=== PATIENT | male | born 1955 | race Caucasian/White ===

== ENCOUNTER 2017-04-21 17:05 | Outpatient (CLI) | payer MEDICAID | END 2017-04-21 17:06 | disposition critical access hospital (66) | LOC: EMS 17:05 | PROVIDERS: ATTEND Surgery | DX: R06.02 Shortness of breath (principal); R07.9 Chest pain, unspecified | CPT/HCPCS: A0425; A0427 ==

== ENCOUNTER 2017-04-21 17:29 | Emergency (ER) | payer MEDICAID ==
--- NOTE | 2017-04-21 17:44 | ED Physician Documentation ---
History of Present Illness - Stated complaint Stated Complaint: SOA - Chief complaint Chief Complaint: Resp - History obtained from History obtained from: Patient, EMS - History of Present Illness Timing: Chronic Pain level max: 1 Pain level now: 0 Improved by: nebulizer treatments Worsened by: walking - Treatment prior to arrival Treatment prior to arrival: duoneb and solumedrol with EMS - Additonal information Additional information: Ran out of his albuterol today and his duonebs 2 weeks ago. Also out of his other medications. Increasing chest tightness and dyspnea since running out of his medications. Received nebs and IV solumedrol with EMS. Feels better and is on 3L NC at home. Review of Systems Ten Systems: 10 systems reviewed and negative Constitutional: denies: Fever, Chills Eyes: denies: Decreased vision Ears: denies: Ear pain Nose: denies: Rhinorrhea / runny nose, Congestion Throat: denies: Sore throat Cardiac: denies: Chest pain / pressure, Palpitations, Calf pain Respiratory: reports: Dyspnea, Wheezing. denies: Cough, Hemoptysis GI: denies: Abdominal Pain, Nausea, Vomiting, Diarrhea : denies: Dysuria Skin: denies: Rash Musculoskeletal: denies: Neck pain, Back pain Neurologic: denies: Headache PD PAST MEDICAL HISTORY - Past Medical History Past Medical History: Yes Cardiovascular: Hypertension, High cholesterol Respiratory: COPD Neuro: None Endocrine/Autoimmune: None : None HEENT: Other Psych: None Musculoskeletal: None Derm: None - Past Surgical History Past Surgical History: Yes - Present Medications Home Medications: Ambulatory Orders Medication Instructions Recorded Confirmed Albuterol Sulfate [Proair Hfa] 2 puffs Q4H PRN 06/09/14 04/21/17 Aspirin 325 mg DAILY 06/09/14 04/21/17 Lisinopril 20 mg BID 06/09/14 04/21/17 Albuterol Sulf [Ventolin Hfa 2 puffs INH Q4HR PRN #1 inhaler 04/21/17 Inhaler] Atorvastatin [Lipitor] 40 mg DAILY 04/21/17 04/21/17 Ipratropium/Albuterol Sulfate 3 ml QID 04/21/17 04/21/17 [Iprat-Albut 0.5-3(2.5) mg/3 ml] Ipratropium/Albuterol [Duoneb] 3 ml INH Q6H #30 neb 04/21/17 Metoprolol Tartrate 25 mg PO BID 04/21/17 04/21/17 Prednisone 40 mg PO DAILY #10 tablet 04/21/17 - Allergies Allergies/Adverse Reactions: Allergies Allergy/AdvReac Type Severity Reaction Status Date / Time No Known Drug Allergies Allergy Verified 04/21/17 17:39 - Social History Does the pt smoke?: Yes Smoking Status: Current every day smoker Does the pt drink ETOH?: No Does the pt have substance abuse?: No PD ED PE NORMAL - Vitals Vital signs reviewed: Yes - General General: Alert and oriented X 3, No acute distress, Well developed/nourished - HEENT HEENT: Moist mucous membranes - Neck Neck: Supple, no meningeal sign - Cardiac Cardiac: RRR, Strong equal pulses - Respiratory Respiratory: No respiratory distress, Other (dimished BS bilaterally with mild wheeze) - Abdomen Abdomen: Soft, Non tender - Derm Derm: Warm and dry, No rash - Extremities Extremities: No edema, No calf tenderness / cord - Neuro Neuro: Alert and oriented X 3 - Psych Psych: Normal mood, Normal affect Results - Vitals Vitals: Vital Signs - 24 hr 04/21/17 04/21/17 04/21/17 17:35 17:55 18:22 Temperature 36.9 C Heart Rate 70 64 Respiratory 22 18 Rate Blood Pressure 208/93 H 189/74 H O2 Saturation 100 97 04/21/17 04/21/17 18:24 19:44 Temperature Heart Rate 59 L 60 Respiratory 20 20 Rate Blood Pressure 168/19 H 170/80 H O2 Saturation 93 95 Oxygen O2 Source Nasal cannula PD MEDICAL DECISION MAKING - ED course Complexity details: re-evaluated patient, considered differential, d/w patient, d/w family ED course: Patient is a 61-year-old male who has a long-standing history of COPD. Ran out of his medications several weeks ago and ran out of his last inhaler today. Increased dyspnea today. This resolved with treatment with EMS. Was also given nebulizer treatments here as well as prednisone. He states that he cannot make it to his doctor's appointments because he does not have a ride. We discussed using [facility] to schedule bead picker some drop-offs for him. He also states he cannot get his medications because he cannot get to the pharmacy. His family who is present in the emergency department states that they cannot bead picker his medications for him either. Recommend that he talk to [facility] to determine if he is eligible for home delivery of his medications. We also discussed the fact that he may benefit from a assisted living facility or senior living as he is having a harder time taking care of himself at home. Resources were given. He will call his doctor in the morning and speak with the clinic staff and a social work associate if available to help with the transition for him. No acute emergency medical condition at this time. Patient counseled regarding signs and symptoms for which I believe and urgent re-evaluation would be necessary. Patient with good understanding of and agreement to plan and is comfortable going home at this time This document was made in part using voice recognition software. While efforts are made to proofread this document, sound alike and grammatical errors may occur. Departure - Departure Disposition: 01 Home, Self Care Clinical Impression: Severe chronic obstructive pulmonary disease Condition: Good Instructions: COPD Dc Follow-Up: Deisy Javed ARNP [Primary Care Provider] - Tomorrow Prescriptions: Albuterol Sulf [Ventolin Hfa Inhaler] 2 puffs INH Q4HR PRN #1 inhaler PRN Reason: Wheezing Ipratropium/Albuterol [Duoneb] 3 ml INH Q6H #30 neb Prednisone 40 mg PO DAILY #10 tablet Comments: You need to fill your prescriptions tomorrow. you need to call your doctor in the morning as well to refill your medications. Discharge Date/Time: 04/21/17 20:41
[2017-04-21] MEDS ORDERED: ALBUTEROL NEB 2.5 MG/3 ML INH ONE (18:17)
[2017-04-21] MEDS: ALBUTEROL NEB 2.5 MG/3 ML INH STA (18:22)
[2017-04-21] MEDS: predniSONE 20 MG TABLET PO STA (18:34)
[2017-04-21] MEDS ORDERED: predniSONE 20 MG TABLET ONE (18:36)
[2017-04-21] MEDS ORDERED: IPRATROPIUM/ALBUTEROL 3 ML NEB INH ONE (19:40)
[2017-04-21] MEDS: IPRATROPIUM/ALBUTEROL 3 ML NEB INH STA (19:43)
[2017-04-21 19:46] VITALS: BP 170/80
== END 2017-04-21 20:41 | disposition home or self-care (01) ==
LOC: EDUNIT# → ED 17:29
DX: J44.9 Chronic obstructive pulmonary disease, unspecified (principal); I10 Essential (primary) hypertension; Z79.82 Long term (current) use of aspirin
CPT/HCPCS: 94664; 99284

== ENCOUNTER 2017-09-29 14:20 | Outpatient (CLI) | payer MEDICAID ==
--- NOTE | 2017-09-29 16:00 | XRAY Report ---
TWO VIEW CHEST: 09/29/2017 CLINICAL INDICATION: Hypoxemia. COMPARISON: CT 02/25/2016, plain film 02/25/2016. FINDINGS: Frontal and lateral views of the chest demonstrate a normal cardiac silhouette. Extensive emphysema persists. New patchy infiltrates are superimposed. No effusion or pneumothorax is present. IMPRESSION: NEW PATCHY INFILTRATES SUPERIMPOSED UPON EXTENSIVE EMPHYSEMA. TD: 09/29/2017 15:59
== END 2017-09-29 14:21 | disposition home or self-care (01) ==
LOC: DI.S 14:20
PROVIDERS: ATTEND Nurse Practitioner Family
DX: R91.8 Other nonspecific abnormal finding of lung field (principal); J43.9 Emphysema, unspecified
CPT/HCPCS: 71046

== ENCOUNTER 2017-09-29 14:40 | Outpatient (CLI) | payer MEDICAID ==
[2017-09-29 18:03] LABS: BASOPHILS % (AUTO) 0.7 %; EOSINOPHILS # (AUTO) 0.1 10^3/uL (0.0-0.7); EOSINOPHILS % (AUTO) 1.5 %; HGB - HEMOGLOBIN 14.3 g/dL (14.0-18.0); LYMPHOCYTES # (AUTO) 0.7 10^3/uL (1.5-3.5); LYMPHOCYTES % (AUTO) 10.7 %; MEAN CORPUSCULAR HEMOGLOBIN 27.8 pg (27.0-31.0); MEAN CORPUSCULAR HGB CONC 31.7 g/dL (32.0-36.0); MEAN CORPUSCULAR VOLUME 87.5 fL (80.0-94.0); MEAN PLATELET VOLUME 9.1 fL (7.4-11.4); MONOCYTES # (AUTO) 0.4 10^3/uL (0.0-1.0); MONOCYTES % (AUTO) 6.7 %; NEUTROPHILS % (AUTO) 80.4 %; PLT - PLATELET COUNT 137 10^3/uL (130-450); RED BLOOD COUNT 5.15 10^6/uL (4.70-6.10); RED CELL DISTRIBUTION WIDTH 14.1 % (12.0-15.0); WHITE BLOOD COUNT 6.3 x10^3/uL (4.8-10.8)
[2017-09-29 18:30] LABS: ALKALINE PHOSPHATASE 69 IU/L (42-121); ALT ALANINE AMINOTRANSFERASE 25 IU/L (10-60); AST ASPARTATE AMINOTRANSFERASE 33 IU/L (10-42); CALCIUM 9.1 mg/dL (8.5-10.3); CARBON DIOXIDE - CO2 34 mmol/L (21-32); CHLORIDE 90 mmol/L (101-111); GLUCOSE 87 mg/dL (70-100); SODIUM 135 mmol/L (135-145)
[2017-09-29 18:33] LABS: THYROID STIMULATING HORMONE 9.79 uIU/mL (0.34-5.60)
[2017-09-29 18:40] LABS: ALBUMIN 3.7 g/dL (3.2-5.5); ALBUMIN/GLOBULIN RATIO 1.1 (1.0-2.2); BILIRUBIN,TOTAL 0.5 mg/dL (0.2-1.0); BUN - BLOOD UREA NITROGEN 12 mg/dL (6-20); CREATININE 0.5 mg/dL (0.6-1.2); GFR - MDRD 167 (>89); TOTAL PROTEIN 7.2 g/dL (6.7-8.2)
[2017-09-29 19:11] LABS: FREE T4 (FREE THYROXINE) 0.79 ng/dL (0.58-1.64)
== END 2017-09-29 14:41 | disposition home or self-care (01) ==
LOC: LAB.S 14:40
PROVIDERS: ATTEND Nurse Practitioner Family
DX: I11.0 Hypertensive heart disease with heart failure (principal); I50.9 Heart failure, unspecified; E04.1 Nontoxic single thyroid nodule; I25.10 Atherosclerotic heart disease of native coronary artery without angina pectoris; J44.9 Chronic obstructive pulmonary disease, unspecified
CPT/HCPCS: 36415; 80050; 83880; 84439

== ENCOUNTER 2017-09-29 19:39 | Inpatient (IN) | payer MEDICAID ==
[2017-09-29] MEDS ORDERED: SODIUM CHLORIDE 0.9% 1,000 ML IV ONE (20:02)
[2017-09-29] MEDS ORDERED: FUROSEMIDE 40 MG/4 ML VIAL IVP STA (20:02)
--- NOTE | 2017-09-29 20:07 | ED Physician Documentation ---
PD HPI DYSPNEA - Stated complaint Stated Complaint: LAB TEST FOR CHF - Chief complaint Chief Complaint: Resp - History obtained from History obtained from: Patient, Family - History of Present Illness Timing - onset: Today Timing - onset during: Rest Timing - duration: Days (1) Timing - details: Gradual onset Pain level max: 0 Pain level now: 0 Improved by: O2 Worsened by: Exertion Associated symptoms: No: Fever, Cough, Hemoptysis, Wheezing, Chest pain / discomfort, Palpitations, Diaphoresis Similar symptoms before: Diagnosis (CHF, COPD) Recently seen: Clinic (seen in clinic [facility] today for same, sent here for elevated BNP) Review of Systems Ten Systems: 10 systems reviewed and negative Constitutional: denies: Fever, Chills Ears: denies: Ear pain Nose: denies: Rhinorrhea / runny nose, Congestion Throat: denies: Sore throat Cardiac: denies: Chest pain / pressure Respiratory: reports: Dyspnea, Cough, Wheezing. denies: Hemoptysis GI: denies: Abdominal Pain, Nausea, Vomiting, Diarrhea : denies: Dysuria Skin: denies: Rash Musculoskeletal: denies: Neck pain, Back pain Neurologic: denies: Focal weakness, Numbness, Confused, Altered mental status, Headache PD PAST MEDICAL HISTORY - Past Medical History Cardiovascular: Hypertension, High cholesterol Respiratory: COPD Neuro: None Endocrine/Autoimmune: None : None HEENT: Other Psych: None Musculoskeletal: None Derm: None - Past Surgical History Past Surgical History: Yes Cardiovascular: Coronary stent - Present Medications Home Medications: Ambulatory Orders Medication Instructions Recorded Confirmed Albuterol Sulfate [Proair Hfa] 2 puffs Q4H PRN 06/09/14 04/21/17 Aspirin 325 mg DAILY 06/09/14 04/21/17 Lisinopril 20 mg BID 06/09/14 04/21/17 Albuterol Sulf [Ventolin Hfa 2 puffs INH Q4HR PRN #1 inhaler 04/21/17 Inhaler] Atorvastatin [Lipitor] 40 mg DAILY 04/21/17 04/21/17 Ipratropium/Albuterol Sulfate 3 ml QID 04/21/17 04/21/17 [Iprat-Albut 0.5-3(2.5) mg/3 ml] Ipratropium/Albuterol [Duoneb] 3 ml INH Q6H #30 neb 04/21/17 Metoprolol Tartrate 25 mg PO BID 04/21/17 04/21/17 predniSONE [Prednisone] 40 mg PO DAILY #10 tablet 04/21/17 - Allergies Allergies/Adverse Reactions: Allergies Allergy/AdvReac Type Severity Reaction Status Date / Time No Known Drug Allergies Allergy Verified 09/29/17 20:31 - Social History Does the pt smoke?: Yes Smoking Status: Current every day smoker Does the pt drink ETOH?: No Does the pt have substance abuse?: No PD ED PE NORMAL - Vitals Vital signs reviewed: Yes - General General: Alert and oriented X 3, Other (pursed lip breathing) - HEENT HEENT: PERRL - Neck Neck: Supple, no meningeal sign - Cardiac Cardiac: Other (tachycardic) - Respiratory Respiratory: Other (rhonchi and decreased BS bilaterally.) - Abdomen Abdomen: Soft, Non tender, Non distended - Derm Derm: Warm and dry - Extremities Extremities: Other (2+ B LE edema) - Neuro Neuro: Alert and oriented X 3 - Psych Psych: Normal mood, Normal affect Results - Vitals Vitals: Vital Signs - 24 hr 09/29/17 09/29/17 09/29/17 19:49 20:05 20:08 Temperature 36.7 C Heart Rate 103 H 105 H 101 H Respiratory 20 14 19 Rate Blood Pressure 157/83 H 119/73 161/84 H O2 Saturation 78 L 94 100 09/29/17 09/29/17 09/29/17 20:10 20:30 21:32 Temperature 36.0 C L Heart Rate 96 101 H 101 H Respiratory 17 16 23 Rate Blood Pressure 130/77 118/81 H 102/66 O2 Saturation 100 94 99 09/29/17 09/29/17 21:47 21:58 Temperature Heart Rate 99 103 H Respiratory 23 23 Rate Blood Pressure 102/66 O2 Saturation 94 Oxygen O2 Source BIPAP Oxygen Flow Rate 15 - EKG (time done) 2005 Rate: Rate (enter#) (96) Rhythm: NSR [place]: Normal Intervals: Normal [place] QRS: Normal Ischemia: Normal ST segments - Labs Labs: Laboratory Tests 09/29/17 09/29/17 09/29/17 20:05 20:05 20:05 WBC 8.5 RBC 5.56 Hgb 15.2 Hct 48.5 MCV 87.3 MCH 27.3 MCHC 31.2 L RDW 14.5 Plt Count 170 MPV 7.9 Neut # Not Reportable Lymph # Not Reportable [place] # Not Reportable Eos # Not Reportable Baso # Not Reportable Absolute Nucleated RBC Not Reportable Total Counted 100 Band Neuts % (Manual) 4 Reactive Lymphs % (Man) 4 Abnorm Lymph % (Manual) 0 Nucleated RBC % Not Reportable Neutrophils # (Manual) 6.7 H Lymphocytes # (Manual) 1.5 Monocytes # (Manual) 0.3 Eosinophils # (Manual) 0.0 Basophils # (Manual) 0.0 Differential Comment MANUAL DIFFERENTIAL Platelet Estimate NORMAL (130-450,000) Platelet Morphology NORMAL APPEARANCE RBC Morph Micro Appear NORMAL APPEARANCE Sodium 136 Potassium 4.4 Chloride 87 L Carbon Dioxide 35 H Anion Gap 14.0 H BUN 13 Creatinine 0.6 Estimated GFR (MDRD) 136 Glucose 156 H Calcium 9.3 Total Bilirubin 0.8 AST 40 ALT 28 Alkaline Phosphatase 72 Troponin I < 0.04 B-Natriuretic Peptide Total Protein 7.9 Albumin 4.0 Globulin 3.9 Albumin/Globulin Ratio 1.0 Lipase 30 09/29/17 20:05 WBC RBC Hgb Hct MCV MCH MCHC RDW Plt Count MPV Neut # Lymph # [place] # Eos # Baso # Absolute Nucleated RBC Total Counted Band Neuts % (Manual) Reactive Lymphs % (Man) Abnorm Lymph % (Manual) Nucleated RBC % Neutrophils # (Manual) Lymphocytes # (Manual) Monocytes # (Manual) Eosinophils # (Manual) Basophils # (Manual) Differential Comment Platelet Estimate Platelet Morphology RBC Morph Micro Appear Sodium Potassium Chloride Carbon Dioxide Anion Gap BUN Creatinine Estimated GFR (MDRD) Glucose Calcium Total Bilirubin AST ALT Alkaline Phosphatase Troponin I B-Natriuretic Peptide 1173 H Total Protein Albumin Globulin Albumin/Globulin Ratio Lipase - Rads (name of study) cxr Radiology: Prelim report reviewed, EMP read contemporaneously, See rad report ( Severe emphysema and scarring, worse compared to 02/25/2016. Right mid and lower lung focal opacities are concerning for pneumonia superimposed on severe emphysema, appear slightly increased compared to prior. Multiple nodular opacities in the right upper lobe have increased, could be areas of pneumonia or aspiration. Follow-up of these findings are recommended to ensure resolution. A follow-up chest CT could be obtained to exclude malignancy. No pleural effusion or pneumothorax. Hyperexpanded lungs. ) PD MEDICAL DECISION MAKING - ED course Complexity details: reviewed old records, reviewed results, re-evaluated patient , considered differential, d/w patient, d/w road consultant ED course: Patient is a 62-year-old male who presents to the emergency department with hypoxia and respiratory distress. Initial O2 sat was in the 60s. Change from his home nasal cannula to a nonrebreather. O2 sats improved, placed on BiPAP for CHF. Also treated with Rocephin and azithromycin for possible pneumonia. Also given Lasix for his CHF. Will admit the patient for further evaluation and care. Negative troponin. No acute EKG changes. Discussed the case with Dr. Chawla who accepts. This document was made in part using voice recognition software. While efforts are made to proofread this document, sound alike and grammatical errors may occur. Departure - Departure Disposition: 64 [facility] DC/Xfer Clinical Impression: Moderate COPD (chronic obstructive pulmonary disease), Hypoxia Congestive heart failure Qualifiers: Congestive heart failure type: unspecified Congestive heart failure chronicity : acute on chronic Qualified Code(s): I50.9 - Heart failure, unspecified Pulmonary edema Qualifiers: Chronicity: acute Qualified Code(s): J81.0 - Acute pulmonary edema Condition: Stable Discharge Date/Time: 09/29/17 22:40
[2017-09-29 20:12] LABS: RED CELL DISTRIBUTION WIDTH 14.5 % (12.0-15.0); WHITE BLOOD COUNT 8.5 x10^3/uL (4.8-10.8)
[2017-09-29 20:19] LABS: BASOPHILS % (AUTO) 0.7 %; EOSINOPHILS % (AUTO) 0.8 %; HGB - HEMOGLOBIN 15.2 g/dL (14.0-18.0); LYMPHOCYTES % (AUTO) 10.9 %; MEAN CORPUSCULAR HEMOGLOBIN 27.3 pg (27.0-31.0); MEAN CORPUSCULAR HGB CONC 31.2 g/dL (32.0-36.0); MEAN CORPUSCULAR VOLUME 87.3 fL (80.0-94.0); MEAN PLATELET VOLUME 7.9 fL (7.4-11.4); MONOCYTES % (AUTO) 7.1 %; NEUTROPHILS % (AUTO) 80.5 %; PLT - PLATELET COUNT 170 10^3/uL (130-450); RED BLOOD COUNT 5.56 10^6/uL (4.70-6.10)
[2017-09-29 20:33] LABS: BILIRUBIN,TOTAL 0.8 mg/dL (0.2-1.0); CALCIUM 9.3 mg/dL (8.5-10.3)
[2017-09-29 20:34] LABS: ABNORMAL LYMPHS % (MANUAL) 0 %
[2017-09-29] MEDS ORDERED: LORazepam 2 MG/ML VIAL IVP STA (20:36)
[2017-09-29 20:41] LABS: CREATININE 0.6 mg/dL (0.6-1.2); TOTAL PROTEIN 7.9 g/dL (6.7-8.2)
[2017-09-29 20:46] LABS: BAND NEUTROPHILS % (MANUAL) 4 %; LYMPHOCYTES # (MANUAL) 1.5 10^3/uL (1.5-3.5); LYMPHOCYTES % (MANUAL) 14 %; MONOCYTES # (MANUAL) 0.3 10^3/uL (0.0-1.0); NEUTROPHILS # (MANUAL) 6.7 10^3/uL (1.5-6.6); NEUTROPHILS % (MANUAL) 75 %; PLATELET MORPHOLOGY NORMAL APPEARANCE (NORMAL); RBC MORPHOLOGY (MULTIPLE) NORMAL APPEARANCE (NORMAL)
[2017-09-29 20:47] LABS: DIFFERENTIAL COMMENT MANUAL DIFFERENTIAL; PLATELET ESTIMATE, MANUAL NORMAL (130-450,000) (NORMAL)
--- NOTE | 2017-09-29 20:53 | XRAY Report ---
EXAM: CHEST RADIOGRAPHY EXAM DATE: 09/29/2017 08:30 PM. CLINICAL HISTORY: Hypoxia. Patchy infiltrates. COMPARISON: Chest 09/29/2017 and 02/25/2016. TECHNIQUE: 1 view. FINDINGS: Lungs/Pleura: Severe emphysema and scarring, worse compared to 02/25/2016. Right mid and lower lung f ocal opacities are concerning for pneumonia superimposed on severe emphysema, appear slightly increas ed compared to prior. Multiple nodular opacities in the right upper lobe have increased, could be are as of pneumonia or aspiration. Follow-up of these findings are recommended to ensure resolution. A fo llow-up chest CT could be obtained to exclude malignancy. No pleural effusion or pneumothorax. Hypere xpanded lungs. Mediastinum: Enlarged pulmonary arteries is seen with pulmonary arterial hypertension. The heart is n ot enlarged. IMPRESSION: Severe emphysema and scarring, worse compared to 02/25/2016. Right mid and lower lung foc al opacities are concerning for pneumonia superimposed on severe emphysema, appear slightly increased compared to prior. Multiple nodular opacities in the right upper lobe have increased, could be areas of pneumonia or aspiration. Follow-up of these findings are recommended to ensure resolution. A foll ow-up chest CT could be obtained to exclude malignancy. No pleural effusion or pneumothorax. Hyperexp anded lungs. [facility] Referring Provider Line: [phone] SITE ID: [id number]
[2017-09-29] MEDS ORDERED: cefTRIAXone 1 GM VIAL IVP STA (21:05)
[2017-09-29] MEDS ORDERED: AZITHROMYCIN INJ 500 MG in SODIUM CHLORIDE 0.9% 250 ML IV STA (21:05)
[2017-09-29] MEDS ORDERED: methylPREDNISolone SUCCINATE 125 MG/2 ML VIAL IVP STA (21:06)
[2017-09-29] MEDS ORDERED: IPRATROPIUM/ALBUTEROL 3 ML NEB INH STA (21:06)
[2017-09-29] MEDS ORDERED: ONDANSETRON 4 MG/2 ML VIAL IVP PRN (22:12)
[2017-09-29 22:46] LABS: SALICYLATE < 6.0 mg/dL
[2017-09-29 22:47] LABS: ACETAMINOPHEN < 10 ug/mL (10-30)
[2017-09-29] MEDS ORDERED: IOPAMIDOL-300 100 ML VIAL ONE (23:10)
[2017-09-29] MEDS ORDERED: IOPAMIDOL-300 100 ML VIAL IVP ONE (23:37)
[2017-09-29 23:52] LABS: MUDS CUTOFF CONCENTRATIONS CUTOFF CONC BELOW:
[2017-09-29 23:54] LABS: BILIRUBIN,URINE NEGATIVE (NEGATIVE); GLUCOSE, URINE (UA) NEGATIVE (NEGATIVE); KETONES,URINE (UA) NEGATIVE (NEGATIVE); LEUKOCYTE ESTERASE, URINE NEGATIVE (NEGATIVE); NITRITE,URINE NEGATIVE (NEGATIVE); OCCULT BLOOD,URINE TRACE-LYSE (NEGATIVE); PH,URINE 5.5 PH (5.0-7.5); PROTEIN,URINE NEGATIVE (NEGATIVE); UROBILINOGEN,URINE 0.2 (NORMAL) E.U./dL (NORMAL)
[2017-09-29 23:56] LABS: CLARITY,URINE CLEAR (CLEAR)
[2017-09-30] MEDS: FLUTICASONE HFA 220 MCG INHALER INH SCH ×2 (00:02→13:02)
[2017-09-30] MEDS: IPRATROPIUM/ALBUTEROL 3 ML NEB INH SCH ×6 (00:03→19:37)
[2017-09-30 00:05] LABS: BACTERIA,URINE Rare /HPF (None Seen); MUCUS,URINE Few Strands; SQUAMOUS EPITHELIAL CELL,UR RARE Squamous (<= Few)
[2017-09-30 00:06] LABS: AMPHETAMINE SCREEN,URINE NEGATIVE (NEGATIVE); BENZODIAZEPINES SCREEN, URINE NEGATIVE (NEGATIVE); CASTS, URINE 6-10 Hyaline Casts /LPF; COCAINE SCREEN URINE NEGATIVE (NEGATIVE); METHADONE SCREEN, URINE NEGATIVE (NEGATIVE); METHAMPHETAMINES SCREEN, URINE NEGATIVE (NEGATIVE); OPIATE SCREEN, URINE NEGATIVE (NEGATIVE); OXYCODONE SCREEN, URINE NEGATIVE (NEGATIVE); PROPOXYPHENE SCREEN, URINE NEGATIVE (NEGATIVE); TRICYCLIC ANTIDEPRESSANT,URINE NEGATIVE (NEGATIVE)
--- NOTE | 2017-09-30 00:20 | CT Report ---
EXAM: CT ANGIOGRAM CHEST EXAM DATE: 09/29/2017 11:39 PM. CLINICAL HISTORY: Respiratory failure. COMPARISON: 02/25/2016. TECHNIQUE: Routine helical imaging was performed through the chest in the pulmonary arterial phase. I V Contrast: Nonionic. Reconstructions: Coronal 3-D MIP reconstructions.Sagittal and coronal. In accordance with CT protocol optimization, one or more of the following dose reduction techniques w ere utilized for this exam: automated exposure control, adjustment of mA and/or KV based on patient s ize, or use of iterative reconstructive technique. FINDINGS: Pulmonary Arteries: Diagnostic quality: Adequate through the segmental arteries. No evidence for acute or chronic pulmona ry emboli. Right ventricle appears mildly dilated compared with the left ventricle. Mild bowing of the intervent ricular septum toward the left. Dilated central pulmonary arteries. Lungs/Pleura: Advanced emphysema. Motion artifact. Possible interstitial infiltrate or edema. Scatter ed bilateral areas of ill-defined nodularity. Small pleural effusions. No pneumothorax. Mediastinum: Heart size is normal. Coronary artery calcifications. Normal-sized mediastinal lymph nod es. Thoracic Aorta: Moderate to severe atherosclerosis. No aortic aneurysm or dissection. Upper Abdomen: Small stones in the gallbladder. No cholecystitis identified. Other: Right carotid artery stent. IMPRESSION: 1. No pulmonary emboli seen. 2. Advanced emphysema with prominent central pulmonary arteries suggesting pulmonary arterial hyperte nsion. There may be mild right heart strain. 3. Coronary artery calcifications. 4. Possible interstitial infiltrate or edema. Scattered ill-defined areas of slight nodularity seen b ilaterally, possibly inflammatory or fibrotic. Malignancy difficult to exclude. Recommend 6 month fol low-up CT. 5. Small pleural effusions. 6. Small stones in the gallbladder. No cholecystitis identified. [facility] Referring Provider Line: [phone] SITE ID: [id number]
[2017-09-30] MEDS: PIPERACILLIN/TAZOBACTAM 3.375 GM in SODIUM CHLORIDE 0.9% MINIBAG 100 ML IV SCH ×5 (00:30→22:06)
[2017-09-30] MEDS: ASPIRIN 325 MG TABLET PO SCH ×2 (00:38→08:46)
--- NOTE | 2017-09-30 03:27 | HISTORY & PHYSICAL EXAMINATION ---
DATE OF SERVICE: 09/29/2017 Physician: Rocio Chawla MD DATE OF ADMISSION: 09/29/2017 CHIEF COMPLAINT: Respiratory failure. 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 Not not much history could be obtained from the patient, as he presented with respiratory failure and was on BiPAP when I interviewed him. As much as he could answer my questions while on BiPAP, he reported developing shortness of breath and cough about 2 weeks prior to presentation. He felt ill in general. Denied fever. Reported weight loss recently, but could not quantify. Per ER report, the patient was sent to the ER by Deisy Javed, primary care provider, due to an elevated BNP. On further interview, the patient reported that his lower extremities had been more swollen than before. He did not admit to noncompliance. Although he has history of such in the past , he reported using his home oxygen and taking his outpatient medications regularly. Reportedly, he quit smoking last year. Upon presentation to the ER, the patient was found with respiratory failure. His oxygen saturation was 60% on his usual oxygen flow, which would be 2-3 liters via nasal cannula. Due to his respiratory failure, he was started on noninvasive ventilation with BiPAP. When I saw him, he was on 30% FiO2, had good tidal volumes, and appeared uncomfortable and synchronous with the BiPAP. He had good mental status. ER workup showed normal white blood cell count. Chest x-ray with diffuse complex infiltrates described as severe emphysema, worse compared to February 2016. Right mid and lower lung focal opacities concerning for pneumonia superimposed on emphysema, increased compared to prior exam. In addition, there were multiple nodular opacities on the right side, which also increased, raising the possibility of aspiration. Followup with CT was recommended. There was no pneumothorax and no pleural effusion. EKG showed nonspecific changes. Troponin was negative. BNP was elevated around 1000. However, notably a BNP in February 2017 was in the 1000 range as well, although back in 2015 BNP was in the 300 range. CODE STATUS: During prior hospital admission in February 2016, patient was actually intubated and, at that time, he was FULL CODE status. When I interviewed him today, I attempted to discuss code status. The patient, however, told me that he did not understand the issue being discussed. Therefore, he will remain FULL CODE per default. REVIEW OF SYMPTOMS: Please see pertinent positives and negatives listed above at history of present illness. I completed 12-point review The patient did not report additional complaint. PAST MEDICAL HISTORY 1. End-stage COPD on 2-3 liters oxygen, history of intubation for respiratory failure in February 2016. 2. Coronary artery disease, with myocardial infarction in 2013, subsequently non-ST elevation myocardial infarction in February 2016. 3. Brief episode of V-tach in the setting of sepsis and critical illness during last hospital stay in February 2016. 4. Congestive heart failure. No echocardiogram available. 5. Hypertension. 6. Dyslipidemia. 7. History of noncompliance. 8. Peripheral vascular disease, status post carotid endarterectomy. 9. Last admission to [facility] was in February 2016, at which time the patient was admitted with respiratory failure, was intubated and was critically ill. He was found with non-ST elevation myocardial infarction, had an episode of V-tach, and was found with bacteremia/sepsis. After a short stay at [facility] due to his critical illness, complex background, and multiple abnormalities he was transferred to [place]. OUTPATIENT MEDICATIONS The patient could not confirm current medication list. Reviewing the available record, he was on: 1. Metoprolol. 2. Aspirin. 3. Prednisone. 4. Lisinopril. 5. DuoNeb. 6. Lipitor. 7. ProAir. ALLERGIES: NO KNOWN DRUG ALLERGIES. SOCIAL HISTORY: Reviewing prior medical records, the patient had been independent, lives by himself. His brother was mentioned in the past medical record, who lives nearby on [facility] [address] [facility]. The patient is a lifelong smoker and he reports quitting last year. He does not have history of alcohol use. Does have history of opiate misuse. He has never been and does not have children. PRIMARY CARE PROVIDER: Deisy Javed FAMILY HISTORY: There is no family history of premature coronary artery disease. PHYSICAL EXAMINATION VITAL SIGNS: Temperature 36 Celsius, heart rate between 90 and 100, blood pressure 100/60, respiratory rate 23, oxygen saturation 97 percent on BiPAP on 30 percent FiO2. GENERAL: The patient is a well-developed, cachectic, unkempt, disheveled appearing male who looks older than his age. MUSCULOSKELETAL: Temporal wasting and sunken eyes. Decreased muscle mass, skin and bones, appears with COPD like cachexia with increased AP diameter of the chest. RESPIRATORY: Decreased air entry above all lung maguire, without crackles or wheezes, with increased work of breathing. CARDIOVASCULAR: S1, S2. Regular tachycardia. I could not hear a murmur, rub or gallop. ABDOMEN: Cachectic. Bowel tones hypoactive. Nontender. Benign. NEUROLOGIC: Alert, oriented. Answered straightforward questions appropriately. Neurologically nonfocal. PSYCHIATRIC: Cooperative. No agitation. LYMPHATIC: Peripheral edema up to the mid shins, bilaterally symmetric. SKIN: Pallor. No jaundice. ASSESSMENT/ACTIVE ISSUES/DIAGNOSES/PLAN 1. Respiratory failure, likely multifactorial. a. With diffuse lung infiltrates, pneumonia, aspiration is on the top of the differential diagnoses. Notably reviewing prior medical record, the patient has a history of opioid misuse. It is reasonable to assume if he would take opiates, he would have higher aspiration risk. For this problem, he will be started on Zosyn. Will have speech therapy/ swallow evaluation. Will be monitored with aspiration precautions. b. With elevated BNP and lower extremity swelling, congestive heart failure exacerbation is also likely and contributing. Initially, the patient ruled out for acute coronary syndrome, had a nonspecific EKG and negative troponin. We will continue to cycle troponins to make sure that it is not on an upgoing trend. The patient received Lasix already and was diuresed when he presented. We will give Lasix as needed monitoring the volume status. I ordered echocardiogram and will follow the clinical course. Regarding home medications , I will continue metoprolol and aspirin for history of coronary artery disease and to avoid cardiac decompensation with rebound tachycardia. Regarding additional medications for CHF such as nitrate, currently, the blood pressure is borderline around 100 and, other than metoprolol, I do not think the patient would tolerate further antihypertensive. c. Acute on chronic respiratory failure/chronic obstructive pulmonary disease. The patient likely has exacerbation with decreased air entry, but not much wheezes. He is chronically oxygen dependent, however, today he requires way more oxygen than his baseline. Besides pneumonia and CHF, he will also receive treatment for COPD, which will include IV steroid , proton pump inhibitor, bronchodilators and inhaled corticosteroids as well. Overall, for respiratory failure, we will continue noninvasive ventilation on BiPAP and be monitored in the ICU. d. Finally, to further identify causes leading to worsening respiratory failure , we will complete CT angiography of the chest per PE protocol to make sure that this patient does not have pulmonary embolism plus to further characterize the lung nodules and lesions which were described as complex on the chest x-ray. Notably, this patient being a smoker, being cachectic, looking much older than his age, malignancy is in the differential diagnosis. 2. Cachexia/end stage chronic obstructive pulmonary disease. Patient reporting weight loss. We will start him on high protein, high calorie diet. Request lubricating machine tender evaluation and hope that with treatment of his medical problems he might improve. If not, then palliative care evaluation could be pursued in the future, possibly as outpatient or inpatient, depending on the clinical course. 3. FULL CODE status per default. Patient unable to discuss. 4. History of coronary artery disease and non-ST elevation myocardial infarction. Today, the patient so far ruled out for acute coronary syndrome. We will continue to cycle troponins, continue metoprolol and aspirin, and echocardiogram was ordered as well. 5. History of opioid misuse. I did not see opiates or psychoactive medications on the current medication list, although the patient cannot confirm or update his medication list. I ordered urine and serum toxicology. 6. Deep venous thrombosis prophylaxis. Critical care time spent with the admission of this patient was 60 minutes. ATTESTATION: In good yung, I certify that this patient will need to be admitted as inpatient and stay in the hospital for more than 24-48 hours; however, it is reasonable to expect that he will be discharged or transferred to another facility within 96 hours. Time spent was 60 minutes. cc: Deisy Javed TD: 09/30/2017 03:26 SIMONE
[2017-09-30] MEDS: methylPREDNISolone SUCCINATE 40 MG/ML VIAL IVP SCH ×3 (06:17→22:06)
[2017-09-30] MEDS: SODIUM CHLORIDE FLUSH 0.9% 10 ML SYRINGE IVP SCH ×3 (06:18→22:07)
[2017-09-30] MEDS: PANTOPRAZOLE 40 MG TABLET PO SCH (06:18)
[2017-09-30] MEDS: METOPROLOL TARTRATE 25 MG TABLET PO SCH ×3 (08:46→21:20)
[2017-09-30] MEDS: POLYETHYLENE GLYCOL 3350 17 GM PACKET PO SCH (08:47)
[2017-09-30] MEDS: HEPARIN 5,000 UNIT/ML VIAL SUBQ SCH ×2 (09:17→21:20)
[2017-09-30] MEDS: BUDESONIDE 0.5 MG/2 ML NEB INH SCH ×2 (11:20→19:34)
[2017-09-30] MEDS: SODIUM CHLORIDE FLUSH 0.9% 10 ML SYRINGE IVP PRN (14:16)
[2017-09-30] MEDS ORDERED: MORPHINE SOL 10 MG/0.5 ML SYRINGE PO PRN ×2 (17:06→20:24)
--- NOTE | 2017-09-30 22:02 | PROVIDER PROGRESS NOTE ---
Subjective - Prog Note Date Prog Note Date: 09/30/17 Prog Note Time: 16:30 - Subjective Pt reports feeling: Improved (Less short of breath, rested (pt slept)) Current Medications - Current Medications Current Medications: Albuterol,Aspirin, budesonide, heparin, unit, metoprolol,Morphine, Zofran, Protonix, Zosyn,Sodium chloride Objective - Vital Signs/Intake & Output Reviewed Vital Signs: Yes Vital Signs: Vital Signs Temp Pulse Pulse Resp BP BP Pulse Ox 09/30/17 21:20 122/65 09/30/17 21:00 106 H 21 122/65 94 09/30/17 20:00 37.0 C 106 H 21 135/69 H 4 L 09/30/17 19:30 104 H 18 09/30/17 19:00 105 H 20 110/53 L 92 09/30/17 18:00 102 H 26 H 122/64 90 L Intake & Output: Intake & Output 09/27/17 09/28/17 09/29/17 09/30/17 23:59 23:59 23:59 23:59 Intake Total 250 2130.833 Output Total 1160 Balance 250 970.833 - Objective General Appearance: positive: Alert, Mild distress Eyes Bilateral: positive: Normal inspection, PERRL, EOMI, No lid inflammation, Conjunctivae nml, No scleral icterus ENT: positive: ENT inspection nml, Pharynx nml, No signs of dehydration, Purulent nasal drainage, Oral lesions Neck: positive: Nml inspection, Thyroid nml, No JVD, Trachea midline. negative : Thyromegaly Respiratory: positive: Chest non-tender, Other (Lung sounds diminished all maguire. Pt tachypneic 24BPM). negative: Wheezes, Rales, Rhonchi Cardiovascular: positive: Regular rate & rhythm, No murmur, No gallop. negative : JVD present Abdomen: positive: Non-tender, No organomegaly, Nml bowel sounds, No distention. negative: Hepatomegaly, Splenomegaly Back: positive: Nml inspection. negative: CVA tenderness (R), CVA tenderness (L ) Skin: positive: No rash, Warm, Dry, Pallor. negative: Diaphoresis Extremities: positive: Non-tender, Full ROM, Pedal edema Neurologic/Psychiatric: positive: Oriented x3, CN's nml (2-12), Motor nml, Sensation nml, Mood/affect nml - Lab Results Fish Bones: 10/01/17 07:30 10/01/17 07:30 Other Labs: Lab Results x24hrs 09/30/17 09/29/17 09/29/17 Range/Units 06:10 23:00 22:29 Troponin I < 0.04 (<0.49) ng/mL Urine Color YELLOW Urine Clarity CLEAR (CLEAR) Urine pH 5.5 (5.0-7.5) PH Ur Specific [place] 1.010 (1.002-1.030) Urine Protein NEGATIVE (NEGATIVE) mg/dL Urine Glucose (UA) NEGATIVE (NEGATIVE) mg/dL Urine Ketones NEGATIVE (NEGATIVE) mg/dL Urine Occult Blood TRACE-LYSE (NEGATIVE) Urine Nitrite NEGATIVE (NEGATIVE) Urine Bilirubin NEGATIVE (NEGATIVE) Urine Urobilinogen 0.2 (NORMAL) (NORMAL) E.U./dL Ur Leukocyte Esterase NEGATIVE (NEGATIVE) Urine RBC 6-10 H (0-5) /HPF Urine WBC 0-3 (0-3) /HPF Ur Squamous Epith Cells RARE Squamous (<= Few) Urine Bacteria Rare (None Seen) /HPF Urine Casts 6-10 Hyaline Casts /LPF Urine Mucus Few Strands Urine Culture Comments NOT INDICATED Salicylates < 6.0 mg/dL Urine Opiates Screen NEGATIVE (NEGATIVE) Ur Oxycodone Screen NEGATIVE (NEGATIVE) Urine Methadone Screen NEGATIVE (NEGATIVE) Ur Propoxyphene Screen NEGATIVE (NEGATIVE) Acetaminophen < 10 L (10-30) ug/mL Ur Barbiturates Screen NEGATIVE (NEGATIVE) Ur Tricyclics Screen NEGATIVE (NEGATIVE) Ur Phencyclidine Scrn NEGATIVE (NEGATIVE) Ur Amphetamine Screen NEGATIVE (NEGATIVE) U Methamphetamines Scrn NEGATIVE (NEGATIVE) U Benzodiazepines Scrn NEGATIVE (NEGATIVE) Urine Cocaine Screen NEGATIVE (NEGATIVE) U Cannabinoids Screen NEGATIVE (NEGATIVE) - Diagnostic Imaging Diagnostic Imaging Results: positive: Final report reviewed Diagnostic Imaging Comments: EXAM: CT ANGIOGRAM CHEST EXAM DATE: 09/29/2017 11:39 PM. CLINICAL HISTORY: Respiratory failure. COMPARISON: 02/25/2016. TECHNIQUE: Routine helical imaging was performed through the chest in the pulmonary arterial phase. IV Contrast: Nonionic. Reconstructions: Coronal 3-D MIP reconstructions.Sagittal and coronal. In accordance with CT protocol optimization, one or more of the following dose reduction techniques were utilized for this exam: automated exposure control, adjustment of mA and/or KV based on patient size, or use of iterative reconstructive technique. FINDINGS: Pulmonary Arteries: Diagnostic quality: Adequate through the segmental arteries. No evidence for acute or chronic pulmonary emboli. Right ventricle appears mildly dilated compared with the left ventricle. Mild bowing of the interventricular septum toward the left. Dilated central pulmonary arteries. Lungs/Pleura: Advanced emphysema. Motion artifact. Possible interstitial infiltrate or edema. Scattered bilateral areas of ill-defined nodularity. Small pleural effusions. No pneumothorax. Mediastinum: Heart size is normal. Coronary artery calcifications. Normal-sized mediastinal lymph nodes. Thoracic Aorta: Moderate to severe atherosclerosis. No aortic aneurysm or dissection. Upper Abdomen: Small stones in the gallbladder. No cholecystitis identified. Other: Right carotid artery stent. IMPRESSION: 1. No pulmonary emboli seen. 2. Advanced emphysema with prominent central pulmonary arteries suggesting pulmonary arterial hypertension. There may be mild right heart strain. 3. Coronary artery calcifications. 4. Possible interstitial infiltrate or edema. Scattered ill-defined areas of slight nodularity seen bilaterally, possibly inflammatory or fibrotic. Malignancy difficult to exclude. Recommend 6 month follow-up CT. 5. Small pleural effusions. 6. Small stones in the gallbladder. No cholecystitis identified. EXAM: CHEST RADIOGRAPHY EXAM DATE: 09/29/2017 08:30 PM. CLINICAL HISTORY: Hypoxia. Patchy infiltrates. COMPARISON: Chest 09/29/2017 and 02/25/2016. TECHNIQUE: 1 view. FINDINGS: Lungs/Pleura: Severe emphysema and scarring, worse compared to 02/25/2016. Right mid and lower lung focal opacities are concerning for pneumonia superimposed on severe emphysema, appear slightly increased compared to prior. Multiple nodular opacities in the right upper lobe have increased, could be areas of pneumonia or aspiration. Follow-up of these findings are recommended to ensure resolution. A follow-up chest CT could be obtained to exclude malignancy. No pleural effusion or pneumothorax. Hyperexpanded lungs. Mediastinum: Enlarged pulmonary arteries is seen with pulmonary arterial hypertension. The heart is not enlarged. IMPRESSION: Severe emphysema and scarring, worse compared to 02/25/2016. Right mid and lower lung focal opacities are concerning for pneumonia superimposed on severe emphysema, appear slightly increased compared to prior. Multiple nodular opacities in the right upper lobe have increased, could be areas of pneumonia or aspiration. Follow-up of these findings are recommended to ensure resolution. A follow-up chest CT could be obtained to exclude malignancy. No pleural effusion or pneumothorax. Hyperexpanded lungs. Assessment/Plan - Problem List (1) Severe chronic obstructive pulmonary disease Impression: Pt off BiPAP, says he does not want to go back on; he doesnt feel that it helped him. Pt with O2 sats in mid 90s on 4l/m but desats to mid 80s with any type of activity such as eating. Continue with nebulized steroids and bronchodilators and supplemental oxygen. No leukocytosis or fevers, doubt pneumonia. (2) Congestive heart failure Impression: BNP was 1173 today. Troponins were negative 3. We will continue with fluid restrictions and will monitor the patient closely on telemetry. Qualifiers: Congestive heart failure type: unspecified Congestive heart failure chronicity: acute on chronic Qualified Code(s): I50.9 - Heart failure, unspecified (3) History of coronary artery disease Impression: Troponins negative, no EKG changes. Will continue to monitor. (4) Dyslipidemia Impression: Continue atorvastatin. (5) Hypertension Impression: Controlled. Continue metoprolol, lisinopril. (6) Non-compliance Impression: I will ask social work to evaluate pt's ability to care for himself.
[2017-09-30] MEDS: ALBUTEROL NEB 2.5 MG/3 ML INH PRN (23:04)
[2017-10-01] MEDS: ALBUTEROL NEB 2.5 MG/3 ML INH PRN (03:07)
[2017-10-01] MEDS: CALCIUM CARBONATE CHEW 500 MG TABLET PO SCH ×3 (04:27→21:11)
[2017-10-01] MEDS: methylPREDNISolone SUCCINATE 40 MG/ML VIAL IVP SCH ×3 (06:36→22:24)
[2017-10-01] MEDS: PIPERACILLIN/TAZOBACTAM 3.375 GM in SODIUM CHLORIDE 0.9% MINIBAG 100 ML IV SCH ×3 (06:36→22:23)
[2017-10-01] MEDS: PANTOPRAZOLE 40 MG TABLET PO SCH (06:36)
[2017-10-01] MEDS: SODIUM CHLORIDE FLUSH 0.9% 10 ML SYRINGE IVP SCH ×3 (06:36→22:25)
[2017-10-01] MEDS: IPRATROPIUM/ALBUTEROL 3 ML NEB INH SCH ×4 (07:19→20:51)
[2017-10-01] MEDS: BUDESONIDE 0.5 MG/2 ML NEB INH SCH ×2 (07:19→20:51)
[2017-10-01 07:33] LABS: HGB - HEMOGLOBIN 12.3 g/dL (14.0-18.0); MEAN CORPUSCULAR HEMOGLOBIN 27.7 pg (27.0-31.0); MEAN CORPUSCULAR HGB CONC 31.4 g/dL (32.0-36.0); MEAN CORPUSCULAR VOLUME 88.2 fL (80.0-94.0); MEAN PLATELET VOLUME 7.7 fL (7.4-11.4); RED BLOOD COUNT 4.44 10^6/uL (4.70-6.10); RED CELL DISTRIBUTION WIDTH 14.7 % (12.0-15.0); WHITE BLOOD COUNT 10.2 x10^3/uL (4.8-10.8)
[2017-10-01 07:43] LABS: CALCIUM 8.6 mg/dL (8.5-10.3); CREATININE 0.5 mg/dL (0.6-1.2)
[2017-10-01] MEDS: ASPIRIN 325 MG TABLET PO SCH (08:16)
[2017-10-01] MEDS: METOPROLOL TARTRATE 25 MG TABLET PO SCH ×2 (08:17→21:11)
[2017-10-01] MEDS: HEPARIN 5,000 UNIT/ML VIAL SUBQ SCH ×2 (09:09→21:12)
[2017-10-01] MEDS: POLYETHYLENE GLYCOL 3350 17 GM PACKET PO SCH (12:04)
[2017-10-01] MEDS ORDERED: SENNA 8.6 MG TABLET PO SCH (17:00)
[2017-10-01] MEDS ORDERED: DOCUSATE SODIUM 250 MG CAPSULE PO SCH (17:00)
--- NOTE | 2017-10-01 18:25 | PROVIDER PROGRESS NOTE ---
Subjective - Prog Note Date Prog Note Date: 10/01/17 Prog Note Time: 15:30 - Subjective Pt reports feeling: Improved (The patient was seen in his bedside chair, on 2-1/ 2 L of oxygen via nasal cannula. He was breathing at about 18 breaths a minute and had an oxygen saturation of 96%. He did not significantly desaturate going from the bed to the bedside chair however he does decompensate when walking extended distances.) Current Medications - Current Medications Current Medications: Albuterol,Aspirin, budesonide, heparin, Tums, Solu-Medrol, Lopressor, metoprolol ,Morphine, Zofran, Protonix, Zosyn,Sodium chloride Objective - Vital Signs/Intake & Output Reviewed Vital Signs: Yes Vital Signs: Vital Signs Temp Pulse Pulse Resp BP Pulse Ox 10/01/17 17:00 89 20 145/79 H 91 L 10/01/17 16:00 36.7 C 91 21 123/70 93 10/01/17 15:40 84 19 10/01/17 15:00 94 19 129/70 89 L Intake & Output: Intake & Output 09/28/17 09/29/17 09/30/17 10/01/17 23:59 23:59 23:59 23:59 Intake Total 250 2230.833 1040 Output Total 1410 1100 Balance 250 820.833 -60 - Objective General Appearance: positive: No acute distress, Alert Eyes Bilateral: positive: Normal inspection, PERRL, EOMI, No lid inflammation, Conjunctivae nml, No scleral icterus ENT: positive: ENT inspection nml, Pharynx nml, No signs of dehydration Neck: positive: Nml inspection, Thyroid nml, No JVD, Trachea midline. negative : Thyromegaly Respiratory: positive: Chest non-tender, No respiratory distress, Breath sounds nml, Other (Lung sounds are diminished in all magu[place]). negative: Wheezes, Rales , Rhonchi Cardiovascular: positive: Regular rate & rhythm, No murmur, No gallop Abdomen: positive: Non-tender, No organomegaly, Nml bowel sounds, No distention. negative: Guarding, Rebound Back: positive: Nml inspection. negative: CVA tenderness (R), CVA tenderness (L ) Skin: positive: Color nml, No rash, Warm, Dry. negative: Cyanosis Extremities: positive: Non-tender, Full ROM, Nml appearance, No pedal edema Neurologic/Psychiatric: positive: Oriented x3, CN's nml (2-12), Motor nml, Sensation nml, Mood/affect nml - Lab Results Fish Bones: 10/01/17 07:30 10/01/17 07:30 Other Labs: Lab Results x24hrs 10/01/17 10/01/17 10/01/17 Range/Units 07:30 07:30 07:30 WBC 10.2 (4.8-10.8) x10^3/uL RBC 4.44 L (4.70-6.10) 10^6/uL Hgb 12.3 L (14.0-18.0) g/dL Hct 39.1 L (42.0-52.0) % MCV 88.2 (80.0-94.0) fL MCH 27.7 (27.0-31.0) pg MCHC 31.4 L (32.0-36.0) g/dL RDW 14.7 (12.0-15.0) % Plt Count 136 (130-450) 10^3/uL MPV 7.7 (7.4-11.4) fL Sodium 138 (135-145) mmol/L Potassium 4.8 (3.5-5.0) mmol/L Chloride 94 L (101-111) mmol/L Carbon Dioxide 33 H (21-32) mmol/L Anion Gap 11.0 (6-13) BUN 23 H (6-20) mg/dL Creatinine 0.5 L (0.6-1.2) mg/dL Estimated GFR (MDRD) 167 (>89) Glucose 160 H (70-100) mg/dL Calcium 8.6 (8.5-10.3) mg/dL B-Natriuretic Peptide 880 H (5-100) pg/mL - Diagnostic Imaging Diagnostic Imaging Results: positive: Final report reviewed Diagnostic Imaging Comments: EXAM: CT ANGIOGRAM CHEST EXAM DATE: 09/29/2017 11:39 PM. CLINICAL HISTORY: Respiratory failure. COMPARISON: 02/25/2016. TECHNIQUE: Routine helical imaging was performed through the chest in the pulmonary arterial phase. IV Contrast: Nonionic. Reconstructions: Coronal 3-D MIP reconstructions.Sagittal and coronal. In accordance with CT protocol optimization, one or more of the following dose reduction techniques were utilized for this exam: automated exposure control, adjustment of mA and/or KV based on patient size, or use of iterative reconstructive technique. FINDINGS: Pulmonary Arteries: Diagnostic quality: Adequate through the segmental arteries. No evidence for acute or chronic pulmonary emboli. Right ventricle appears mildly dilated compared with the left ventricle. Mild bowing of the interventricular septum toward the left. Dilated central pulmonary arteries. Lungs/Pleura: Advanced emphysema. Motion artifact. Possible interstitial infiltrate or edema. Scattered bilateral areas of ill-defined nodularity. Small pleural effusions. No pneumothorax. Mediastinum: Heart size is normal. Coronary artery calcifications. Normal-sized mediastinal lymph nodes. Thoracic Aorta: Moderate to severe atherosclerosis. No aortic aneurysm or dissection. Upper Abdomen: Small stones in the gallbladder. No cholecystitis identified. Other: Right carotid artery stent. IMPRESSION: 1. No pulmonary emboli seen. 2. Advanced emphysema with prominent central pulmonary arteries suggesting pulmonary arterial hypertension. There may be mild right heart strain. 3. Coronary artery calcifications. 4. Possible interstitial infiltrate or edema. Scattered ill-defined areas of slight nodularity seen bilaterally, possibly inflammatory or fibrotic. Malignancy difficult to exclude. Recommend 6 month follow-up CT. 5. Small pleural effusions. 6. Small stones in the gallbladder. No cholecystitis identified. EXAM: CHEST RADIOGRAPHY EXAM DATE: 09/29/2017 08:30 PM. CLINICAL HISTORY: Hypoxia. Patchy infiltrates. COMPARISON: Chest 09/29/2017 and 02/25/2016. TECHNIQUE: 1 view. FINDINGS: Lungs/Pleura: Severe emphysema and scarring, worse compared to 02/25/2016. Right mid and lower lung focal opacities are concerning for pneumonia superimposed on severe emphysema, appear slightly increased compared to prior. Multiple nodular opacities in the right upper lobe have increased, could be areas of pneumonia or aspiration. Follow-up of these findings are recommended to ensure resolution. A follow-up chest CT could be obtained to exclude malignancy. No pleural effusion or pneumothorax. Hyperexpanded lungs. Mediastinum: Enlarged pulmonary arteries is seen with pulmonary arterial hypertension. The heart is not enlarged. IMPRESSION: Severe emphysema and scarring, worse compared to 02/25/2016. Right mid and lower lung focal opacities are concerning for pneumonia superimposed on severe emphysema, appear slightly increased compared to prior. Multiple nodular opacities in the right upper lobe have increased, could be areas of pneumonia or aspiration. Follow-up of these findings are recommended to ensure resolution. A follow-up chest CT could be obtained to exclude malignancy. No pleural effusion or pneumothorax. Hyperexpanded lungs. Assessment/Plan - Problem List (1) Severe chronic obstructive pulmonary disease Impression: Patient continues to improve. He was found today sitting in the bedside chair on 2-1/2 L of oxygen's with a saturation of 96%. This is probably better than what he achieves at home. We will continue current care overnight and transfer the patient to the medical floor tomorrow morning. (2) Congestive heart failure Impression: BNP has come down from [id number] today. We will continue with fluid restrictions and will monitor the patient closely on telemetry. Qualifiers: Congestive heart failure type: unspecified Congestive heart failure chronicity: acute on chronic Qualified Code(s): I50.9 - Heart failure, unspecified (3) History of coronary artery disease Impression: Serial troponins were negative, no EKG changes were seen. We will continue to monitor. (4) Dyslipidemia Impression: Continue Lipitor. (5) Hypertension Impression: Well-controlled, continue metoprolol and lisinopril. (6) Non-compliance Impression: Social work is evaluating the patient's ability to care for himself. He will likely need SNF placement following this hospitalization.
[2017-10-02 04:39] LABS: HGB - HEMOGLOBIN 12.7 g/dL (14.0-18.0); MEAN CORPUSCULAR HEMOGLOBIN 27.7 pg (27.0-31.0); MEAN CORPUSCULAR HGB CONC 31.3 g/dL (32.0-36.0); MEAN CORPUSCULAR VOLUME 88.6 fL (80.0-94.0); MEAN PLATELET VOLUME 8.2 fL (7.4-11.4); RED BLOOD COUNT 4.57 10^6/uL (4.70-6.10); RED CELL DISTRIBUTION WIDTH 14.8 % (12.0-15.0); WHITE BLOOD COUNT 9.7 x10^3/uL (4.8-10.8)
[2017-10-02 04:45] LABS: CALCIUM 8.7 mg/dL (8.5-10.3); CREATININE 0.4 mg/dL (0.6-1.2)
[2017-10-02] MEDS: IPRATROPIUM/ALBUTEROL 3 ML NEB INH SCH ×4 (05:27→20:04)
[2017-10-02] MEDS: methylPREDNISolone SUCCINATE 40 MG/ML VIAL IVP SCH ×3 (06:10→20:52)
[2017-10-02] MEDS: PIPERACILLIN/TAZOBACTAM 3.375 GM in SODIUM CHLORIDE 0.9% MINIBAG 100 ML IV SCH ×3 (06:10→20:55)
[2017-10-02] MEDS: SODIUM CHLORIDE FLUSH 0.9% 10 ML SYRINGE IVP SCH ×3 (06:27→20:52)
[2017-10-02] MEDS: PANTOPRAZOLE 40 MG TABLET PO SCH (06:57)
[2017-10-02] MEDS: BUDESONIDE 0.5 MG/2 ML NEB INH SCH ×3 (07:20→20:04)
[2017-10-02] MEDS: HEPARIN 5,000 UNIT/ML VIAL SUBQ SCH ×2 (08:48→20:48)
[2017-10-02] MEDS: FUROSEMIDE 20 MG TABLET PO SCH (08:50)
[2017-10-02] MEDS: CALCIUM CARBONATE CHEW 500 MG TABLET PO SCH ×2 (08:51→20:49)
[2017-10-02] MEDS: METOPROLOL TARTRATE 25 MG TABLET PO SCH ×2 (08:51→20:49)
[2017-10-02] MEDS: ASPIRIN 325 MG TABLET PO SCH (08:52)
[2017-10-02] MEDS: POLYETHYLENE GLYCOL 3350 17 GM PACKET PO SCH (08:52)
--- NOTE | 2017-10-02 12:19 | PROVIDER PROGRESS NOTE ---
Subjective - Prog Note Date Prog Note Date: 10/02/17 Prog Note Time: 11:30 - Subjective Pt reports feeling: Improved (Patient says he slept well, denies any pain or shortness of breath.) Current Medications - Current Medications Current Medications: Albuterol,Aspirin, budesonide, heparin, Tums, Solu-Medrol, Lopressor, metoprolol ,Morphine, Zofran, Protonix, Zosyn,Sodium chloride Objective - Vital Signs/Intake & Output Reviewed Vital Signs: Yes Vital Signs: Vital Signs Pulse Pulse Resp BP BP Pulse Ox 10/02/17 11:17 88 22 10/02/17 10:51 81 18 175/103 H 98 10/02/17 09:00 82 14 175/103 H 97 10/02/17 08:51 140/102 H Intake & Output: Intake & Output 09/29/17 09/30/17 10/01/17 10/02/17 23:59 23:59 23:59 23:59 Intake Total 250 2230.833 1540 560 Output Total 1410 1325 625 Balance 250 820.833 215 -65 - Objective General Appearance: positive: No acute distress, Alert Eyes Bilateral: positive: Normal inspection, PERRL, EOMI, No lid inflammation, Conjunctivae nml, No scleral icterus ENT: positive: ENT inspection nml, Pharynx nml, No signs of dehydration. negative: Oral lesions Neck: positive: Nml inspection, Thyroid nml, No JVD, Trachea midline. negative : Thyromegaly Respiratory: positive: Chest non-tender, No respiratory distress, Breath sounds nml. negative: Wheezes, Rales, Rhonchi Cardiovascular: positive: Regular rate & rhythm, No murmur, No gallop Abdomen: positive: Non-tender, No organomegaly, Nml bowel sounds, No distention. negative: Guarding, Rebound Back: positive: Nml inspection. negative: CVA tenderness (R), CVA tenderness (L ) Skin: positive: Color nml, No rash, Warm, Dry. negative: Cyanosis Extremities: positive: Non-tender, Full ROM, Nml appearance, No pedal edema Neurologic/Psychiatric: positive: Oriented x3, CN's nml (2-12), Motor nml, Sensation nml, Mood/affect nml - Lab Results Fish Bones: 02/15/18 04:23 10/02/17 04:23 Other Labs: Lab Results x24hrs 10/02/17 10/02/17 10/02/17 Range/Units 04:23 04:23 04:23 WBC 9.7 (4.8-10.8) x10^3/uL RBC 4.57 L (4.70-6.10) 10^6/uL Hgb 12.7 L (14.0-18.0) g/dL Hct 40.5 L (42.0-52.0) % MCV 88.6 (80.0-94.0) fL MCH 27.7 (27.0-31.0) pg MCHC 31.3 L (32.0-36.0) g/dL RDW 14.8 (12.0-15.0) % Plt Count 139 (130-450) 10^3/uL MPV 8.2 (7.4-11.4) fL Sodium 137 (135-145) mmol/L Potassium 5.1 H (3.5-5.0) mmol/L Chloride 94 L (101-111) mmol/L Carbon Dioxide 33 H (21-32) mmol/L Anion Gap 10.0 (6-13) BUN 24 H (6-20) mg/dL Creatinine 0.4 L (0.6-1.2) mg/dL Estimated GFR (MDRD) 217 (>89) Glucose 187 H (70-100) mg/dL Calcium 8.7 (8.5-10.3) mg/dL B-Natriuretic Peptide 911 H (5-100) pg/mL Assessment/Plan - Problem List (1) Severe chronic obstructive pulmonary disease Impression: The patient is doing well today. He is using less supplemental oxygen here than he has been using at home. He has not had any new problems and appears to be stable enough to be transferred to the medical floor which we will do this morning. (2) Congestive heart failure Impression: BNP remains elevated at 911 however this is down from 1173 3 days ago. We will continue to monitor. Qualifiers: Congestive heart failure type: unspecified Congestive heart failure chronicity: acute on chronic Qualified Code(s): I50.9 - Heart failure, unspecified (3) History of coronary artery disease Impression: Serial troponins were negative, no EKG changes were seen. We will continue to monitor. (4) Dyslipidemia Impression: Well-managed, continue Lipitor. (5) Hypertension Impression: No hypertension in the last 24 hours. Continue metoprolol and lisinopril. (6) Non-compliance Impression: Await social work recommendations regarding SNF placement.
[2017-10-02] MEDS: ALBUTEROL NEB 2.5 MG/3 ML INH PRN (22:58)
[2017-10-03] MEDS: PIPERACILLIN/TAZOBACTAM 3.375 GM in SODIUM CHLORIDE 0.9% MINIBAG 100 ML IV SCH ×3 (05:27→21:34)
[2017-10-03] MEDS: SODIUM CHLORIDE FLUSH 0.9% 10 ML SYRINGE IVP SCH ×3 (05:28→21:36)
[2017-10-03] MEDS: methylPREDNISolone SUCCINATE 40 MG/ML VIAL IVP SCH ×3 (05:28→21:34)
[2017-10-03 05:30] LABS: HGB - HEMOGLOBIN 13.2 g/dL (14.0-18.0); MEAN CORPUSCULAR HEMOGLOBIN 27.6 pg (27.0-31.0); MEAN CORPUSCULAR HGB CONC 31.6 g/dL (32.0-36.0); MEAN CORPUSCULAR VOLUME 87.4 fL (80.0-94.0); MEAN PLATELET VOLUME 8.2 fL (7.4-11.4); RED BLOOD COUNT 4.79 10^6/uL (4.70-6.10); RED CELL DISTRIBUTION WIDTH 14.9 % (12.0-15.0); WHITE BLOOD COUNT 8.8 x10^3/uL (4.8-10.8)
[2017-10-03] MEDS: PANTOPRAZOLE 40 MG TABLET PO SCH (05:33)
[2017-10-03 05:39] LABS: CALCIUM 8.6 mg/dL (8.5-10.3); CREATININE 0.5 mg/dL (0.6-1.2)
[2017-10-03] MEDS: IPRATROPIUM/ALBUTEROL 3 ML NEB INH SCH ×4 (06:59→20:08)
[2017-10-03] MEDS: BUDESONIDE 0.5 MG/2 ML NEB INH SCH ×2 (06:59→20:08)
[2017-10-03] MEDS: CALCIUM CARBONATE CHEW 500 MG TABLET PO SCH ×2 (08:59→20:43)
[2017-10-03] MEDS: FUROSEMIDE 20 MG TABLET PO SCH (08:59)
[2017-10-03] MEDS: METOPROLOL TARTRATE 25 MG TABLET PO SCH ×2 (08:59→20:43)
[2017-10-03] MEDS: ASPIRIN 325 MG TABLET PO SCH (09:00)
[2017-10-03] MEDS: POLYETHYLENE GLYCOL 3350 17 GM PACKET PO SCH (09:01)
[2017-10-03] MEDS: HEPARIN 5,000 UNIT/ML VIAL SUBQ SCH ×2 (09:03→20:43)
--- NOTE | 2017-10-03 12:34 | PROVIDER PROGRESS NOTE ---
Subjective - Prog Note Date Prog Note Date: 10/03/17 Prog Note Time: 12:30 - Subjective Pt reports feeling: Improved (The patient says he slept well and denies any pain , shortness of breath or any other new problems today.) Current Medications - Current Medications Current Medications: Albuterol,Aspirin, budesonide, heparin, Tums, Solu-Medrol, Lopressor, metoprolol ,Morphine, Zofran, Protonix, Zosyn,Sodium chloride Objective - Vital Signs/Intake & Output Reviewed Vital Signs: Yes Vital Signs: Vital Signs x48h Temp Pulse Pulse Resp BP BP Pulse Ox 10/03/17 12:12 36.6 C 82 16 157/78 H 91 L 10/03/17 11:10 80 14 10/03/17 08:59 181/91 H 10/03/17 07:50 36.5 C 75 16 181/91 H 92 10/03/17 07:02 70 14 10/03/17 05:00 36.3 C L 72 16 168/88 H 92 Intake & Output: Intake & Output 09/30/17 10/01/17 10/02/17 10/03/17 23:59 23:59 23:59 23:59 Intake Total 2230.833 1540 1824.167 550 Output Total 1410 1325 1725 1000 Balance 820.833 215 99.167 -450 - Objective General Appearance: positive: No acute distress, Alert Eyes Bilateral: positive: Normal inspection, PERRL, EOMI, No lid inflammation, Conjunctivae nml, No scleral icterus ENT: positive: ENT inspection nml, Pharynx nml, No signs of dehydration Neck: positive: Nml inspection, Thyroid nml, No JVD, Trachea midline. negative : Thyromegaly Respiratory: positive: Chest non-tender, No respiratory distress, Breath sounds nml. negative: Wheezes, Rales, Rhonchi Cardiovascular: positive: Regular rate & rhythm, No murmur, No gallop Abdomen: positive: Non-tender, No organomegaly, Nml bowel sounds, No distention. negative: Guarding, Rebound Back: positive: Nml inspection. negative: CVA tenderness (R), CVA tenderness (L ) Skin: positive: Color nml, No rash, Warm, Dry. negative: Cyanosis Extremities: positive: Non-tender, Full ROM, Nml appearance, No pedal edema Neurologic/Psychiatric: positive: Oriented x3, CN's nml (2-12), Motor nml, Sensation nml, Mood/affect nml - Lab Results Fish Bones: 10/03/17 05:05 10/03/17 05:05 Other Labs: Lab Results x24hrs 10/03/17 10/03/17 10/03/17 Range/Units 05:05 05:05 05:05 WBC 8.8 (4.8-10.8) x10^3/uL RBC 4.79 (4.70-6.10) 10^6/uL Hgb 13.2 L (14.0-18.0) g/dL Hct 41.8 L (42.0-52.0) % MCV 87.4 (80.0-94.0) fL MCH 27.6 (27.0-31.0) pg MCHC 31.6 L (32.0-36.0) g/dL RDW 14.9 (12.0-15.0) % Plt Count 155 (130-450) 10^3/uL MPV 8.2 (7.4-11.4) fL Sodium 136 (135-145) mmol/L Potassium 5.0 (3.5-5.0) mmol/L Chloride 93 L (101-111) mmol/L Carbon Dioxide 35 H (21-32) mmol/L Anion Gap 8.0 (6-13) BUN 22 H (6-20) mg/dL Creatinine 0.5 L (0.6-1.2) mg/dL Estimated GFR (MDRD) 167 (>89) Glucose 141 H (70-100) mg/dL Calcium 8.6 (8.5-10.3) mg/dL B-Natriuretic Peptide 771 H (5-100) pg/mL Assessment/Plan - Problem List (1) Severe chronic obstructive pulmonary disease Impression: The patient has been oxygen dependent for many years however is now using less oxygen here at the hospital that he has used at home. He is not short of breath and is doing well since he has been moved to the medical surgical floor.Continue present care. (2) Congestive heart failure Impression: The patient's BNP remains elevated, slightly above 700 however was at 1173 4 days ago and 911 2 days ago.Continue present care. Qualifiers: Congestive heart failure type: unspecified Congestive heart failure chronicity: acute on chronic Qualified Code(s): I50.9 - Heart failure, unspecified (3) History of coronary artery disease Impression: Serial troponins were negative, no EKG changes were seen. No complaints of shortness of breath or chest pain. We will continue to monitor. (4) Dyslipidemia Impression: Well-managed, continue Lipitor. (5) Hypertension Impression: Patient's blood pressure has been elevated over the last 36 hours. I will add lisinopril 20 mg to his current medication regimen.
[2017-10-04] MEDS: ALBUTEROL NEB 2.5 MG/3 ML INH PRN (00:25)
[2017-10-04] MEDS: SODIUM CHLORIDE FLUSH 0.9% 10 ML SYRINGE IVP SCH ×3 (06:15→21:32)
[2017-10-04] MEDS: methylPREDNISolone SUCCINATE 40 MG/ML VIAL IVP SCH ×3 (06:15→21:29)
[2017-10-04] MEDS: PIPERACILLIN/TAZOBACTAM 3.375 GM in SODIUM CHLORIDE 0.9% MINIBAG 100 ML IV SCH ×3 (06:15→21:38)
[2017-10-04 06:42] LABS: HGB - HEMOGLOBIN 13.6 g/dL (14.0-18.0); MEAN CORPUSCULAR HEMOGLOBIN 27.9 pg (27.0-31.0); MEAN CORPUSCULAR HGB CONC 31.8 g/dL (32.0-36.0); MEAN CORPUSCULAR VOLUME 87.6 fL (80.0-94.0); MEAN PLATELET VOLUME 7.9 fL (7.4-11.4); RED BLOOD COUNT 4.88 10^6/uL (4.70-6.10); RED CELL DISTRIBUTION WIDTH 15.1 % (12.0-15.0); WHITE BLOOD COUNT 7.5 x10^3/uL (4.8-10.8)
[2017-10-04 06:51] LABS: CALCIUM 8.9 mg/dL (8.5-10.3); CREATININE 0.6 mg/dL (0.6-1.2)
[2017-10-04] MEDS: BUDESONIDE 0.5 MG/2 ML NEB INH SCH ×2 (07:40→20:00)
[2017-10-04] MEDS: IPRATROPIUM/ALBUTEROL 3 ML NEB INH SCH ×4 (07:40→20:00)
[2017-10-04] MEDS: PANTOPRAZOLE 40 MG TABLET PO SCH (08:06)
[2017-10-04] MEDS: ASPIRIN 325 MG TABLET PO SCH (08:06)
[2017-10-04] MEDS: CALCIUM CARBONATE CHEW 500 MG TABLET PO SCH ×2 (08:06→21:28)
[2017-10-04] MEDS: FUROSEMIDE 20 MG TABLET PO SCH (08:06)
[2017-10-04] MEDS: POLYETHYLENE GLYCOL 3350 17 GM PACKET PO SCH (08:07)
[2017-10-04] MEDS: METOPROLOL TARTRATE 25 MG TABLET PO SCH ×2 (08:07→21:29)
[2017-10-04] MEDS: HEPARIN 5,000 UNIT/ML VIAL SUBQ SCH ×2 (08:10→21:33)
[2017-10-04] MEDS: SODIUM CHLORIDE FLUSH 0.9% 10 ML SYRINGE IVP PRN (13:38)
--- NOTE | 2017-10-04 18:33 | PROVIDER PROGRESS NOTE ---
Subjective - Prog Note Date Prog Note Date: 10/04/17 Prog Note Time: 16:30 - Subjective Pt reports feeling: No change (The patient feels well, he says he slept well and has no new complaints today.) Current Medications - Current Medications Current Medications: Albuterol,Aspirin, budesonide, heparin, Tums, Solu-Medrol, Lopressor, metoprolol ,Morphine, Zofran, Protonix, Zosyn,Sodium chloride Objective - Vital Signs/Intake & Output Reviewed Vital Signs: Yes Vital Signs: Vital Signs x48h Temp Pulse Pulse Resp BP Pulse Ox 10/04/17 16:15 81 14 10/04/17 16:09 85 17 90 L 10/04/17 15:13 37.5 C 88 18 160/79 H 87 L 10/04/17 12:57 36.4 C L 91 20 151/66 H 89 L 10/04/17 11:40 80 14 Intake & Output: Intake & Output 10/01/17 10/02/17 10/03/17 10/04/17 23:59 23:59 23:59 23:59 Intake Total 1540 8719.557 9100 990 Output Total 1325 1725 2050 1375 Balance 215 99.167 580 -385 - Objective General Appearance: positive: No acute distress, Alert, Mild distress Eyes Bilateral: positive: Normal inspection, PERRL, EOMI, No lid inflammation, Conjunctivae nml, No scleral icterus ENT: positive: ENT inspection nml, Pharynx nml, No signs of dehydration Neck: positive: Nml inspection, Thyroid nml, No JVD, Trachea midline. negative : Thyromegaly Respiratory: positive: Chest non-tender, No respiratory distress, Breath sounds nml. negative: Wheezes, Rales, Rhonchi Cardiovascular: positive: Regular rate & rhythm, No murmur, No gallop Abdomen: positive: Non-tender, No organomegaly, Nml bowel sounds, No distention. negative: Guarding, Rebound Back: positive: Nml inspection. negative: CVA tenderness (R), CVA tenderness (L ) Skin: positive: Color nml, No rash, Warm, Dry. negative: Cyanosis Extremities: positive: Non-tender, Full ROM, Nml appearance, No pedal edema Neurologic/Psychiatric: positive: Oriented x3, CN's nml (2-12), Motor nml, Sensation nml, Mood/affect nml - Lab Results Fish Bones: 10/04/17 06:05 10/04/17 06:05 Other Labs: Lab Results x24hrs 10/04/17 10/04/17 10/04/17 Range/Units 06:05 06:05 06:05 WBC 7.5 (4.8-10.8) x10^3/uL RBC 4.88 (4.70-6.10) 10^6/uL Hgb 13.6 L (14.0-18.0) g/dL Hct 42.8 (42.0-52.0) % MCV 87.6 (80.0-94.0) fL MCH 27.9 (27.0-31.0) pg MCHC 31.8 L (32.0-36.0) g/dL RDW 15.1 H (12.0-15.0) % Plt Count 149 (130-450) 10^3/uL MPV 7.9 (7.4-11.4) fL Sodium 139 (135-145) mmol/L Potassium 4.9 (3.5-5.0) mmol/L Chloride 93 L (101-111) mmol/L Carbon Dioxide 36 H (21-32) mmol/L Anion Gap 10.0 (6-13) BUN 27 H (6-20) mg/dL Creatinine 0.6 (0.6-1.2) mg/dL Estimated GFR (MDRD) 136 (>89) Glucose 137 H (70-100) mg/dL Calcium 8.9 (8.5-10.3) mg/dL B-Natriuretic Peptide 487 H (5-100) pg/mL Assessment/Plan - Problem List (1) Severe chronic obstructive pulmonary disease Impression: The patient has been oxygen dependent for many years however is now using less oxygen here at the hospital that he has used at home. He is not short of breath and is doing well since he has been moved to the medical surgical floor. Continue present care as we await placement. (2) Congestive heart failure Impression: The patient's BNP remains elevated, but has come down significantly from 1173 on admission to 771 yesterday to 487 today. Continue present care. Qualifiers: Congestive heart failure type: unspecified Congestive heart failure chronicity: acute on chronic Qualified Code(s): I50.9 - Heart failure, unspecified (3) History of coronary artery disease Impression: Serial troponins were negative, no EKG changes were seen. No complaints of shortness of breath or chest pain. We will continue to monitor. (4) Dyslipidemia Impression: Well-managed, continue Lipitor (5) Hypertension Impression: Patient's blood pressure has been elevated over the last 36 hours. I will add lisinopril 20 mg and HCTZ 25 to his current medication regimen. Qualifiers: Hypertension type: essential hypertension Qualified Code(s): I10 - Essential (primary) hypertension
[2017-10-04] MEDS: hydroCHLOROthiazide 25 MG TABLET PO SCH (19:25)
[2017-10-04] MEDS: LISINOPRIL 20 MG TABLET PO SCH (19:25)
[2017-10-05] MEDS: ALBUTEROL NEB 2.5 MG/3 ML INH PRN (01:30)
[2017-10-05] MEDS: SODIUM CHLORIDE FLUSH 0.9% 10 ML SYRINGE IVP SCH ×3 (05:08→21:19)
[2017-10-05] MEDS: PIPERACILLIN/TAZOBACTAM 3.375 GM in SODIUM CHLORIDE 0.9% MINIBAG 100 ML IV SCH ×3 (05:08→21:18)
[2017-10-05] MEDS: PANTOPRAZOLE 40 MG TABLET PO SCH (05:09)
[2017-10-05] MEDS: methylPREDNISolone SUCCINATE 40 MG/ML VIAL IVP SCH ×3 (05:09→21:19)
[2017-10-05 05:43] LABS: HGB - HEMOGLOBIN 13.7 g/dL (14.0-18.0); MEAN CORPUSCULAR HEMOGLOBIN 27.5 pg (27.0-31.0); MEAN CORPUSCULAR HGB CONC 31.5 g/dL (32.0-36.0); MEAN CORPUSCULAR VOLUME 87.5 fL (80.0-94.0); RED BLOOD COUNT 4.99 10^6/uL (4.70-6.10); RED CELL DISTRIBUTION WIDTH 15.1 % (12.0-15.0); WHITE BLOOD COUNT 8.3 x10^3/uL (4.8-10.8)
[2017-10-05 05:49] LABS: CALCIUM 8.8 mg/dL (8.5-10.3); CREATININE 0.5 mg/dL (0.6-1.2)
[2017-10-05] MEDS: BUDESONIDE 0.5 MG/2 ML NEB INH SCH ×2 (07:15→20:10)
[2017-10-05] MEDS: IPRATROPIUM/ALBUTEROL 3 ML NEB INH SCH ×4 (07:15→20:10)
[2017-10-05] MEDS: CALCIUM CARBONATE CHEW 500 MG TABLET PO SCH ×2 (08:57→21:17)
[2017-10-05] MEDS: FUROSEMIDE 20 MG TABLET PO SCH (08:58)
[2017-10-05] MEDS: hydroCHLOROthiazide 25 MG TABLET PO SCH (08:58)
[2017-10-05] MEDS: METOPROLOL TARTRATE 25 MG TABLET PO SCH ×2 (08:58→21:18)
[2017-10-05] MEDS: ASPIRIN 325 MG TABLET PO SCH (08:58)
[2017-10-05] MEDS: LISINOPRIL 20 MG TABLET PO SCH (08:58)
[2017-10-05] MEDS: HEPARIN 5,000 UNIT/ML VIAL SUBQ SCH ×2 (08:58→21:12)
[2017-10-05] MEDS: POLYETHYLENE GLYCOL 3350 17 GM PACKET PO SCH (09:00)
[2017-10-05] MEDS ORDERED: SODIUM CHLORIDE 0.65% NASAL SPRAY NAS PRN (11:38)
--- NOTE | 2017-10-05 16:55 | PROVIDER PROGRESS NOTE ---
Subjective - Prog Note Date Prog Note Date: 10/05/17 Prog Note Time: 17:00 - Subjective Pt reports feeling: No change (The patient is resting easily and denies any new problems. He says he slept well last night. His appetite is good and he has been moving his bowels without any difficulty.) Current Medications - Current Medications Current Medications: Albuterol,Aspirin, budesonide, heparin, Tums, Solu-Medrol, Lopressor, metoprolol ,Morphine, Zofran, Protonix, Zosyn,Sodium chloride Objective - Vital Signs/Intake & Output Reviewed Vital Signs: Yes Vital Signs: Vital Signs x48h Temp Pulse Pulse Resp BP BP Pulse Ox 10/05/17 16:00 67 14 10/05/17 15:47 36.2 C L 69 18 113/60 95 10/05/17 13:00 36.2 C L 73 18 116/59 L 94 10/05/17 11:30 75 12 10/05/17 08:58 142/85 H Intake & Output: Intake & Output 10/02/17 10/03/17 10/04/17 10/05/17 23:59 23:59 23:59 23:59 Intake Total 7808.073 4576 1090 720 Output Total 1725 2050 2175 2050 Balance 99.167 -580 -1085 -1330 - Objective General Appearance: positive: No acute distress, Alert Eyes Bilateral: positive: Normal inspection, PERRL, EOMI, No lid inflammation, Conjunctivae nml, No scleral icterus ENT: positive: ENT inspection nml, Pharynx nml, No signs of dehydration Neck: positive: Nml inspection, Thyroid nml, No JVD, Trachea midline. negative : Thyromegaly Respiratory: positive: Chest non-tender, No respiratory distress, Breath sounds nml. negative: Wheezes, Rales, Rhonchi Cardiovascular: positive: Regular rate & rhythm, No murmur, No gallop Abdomen: positive: Non-tender, No organomegaly, Nml bowel sounds, No distention. negative: Guarding, Rebound Back: positive: Nml inspection. negative: CVA tenderness (R), CVA tenderness (L ) Skin: positive: Color nml, No rash, Warm, Dry. negative: Cyanosis, Pallor Extremities: positive: Non-tender, Full ROM, Nml appearance, No pedal edema Neurologic/Psychiatric: positive: Oriented x3, CN's nml (2-12), Motor nml, Sensation nml, Mood/affect nml - Lab Results Fish Bones: 10/05/17 05:02 10/05/17 05:02 Other Labs: Lab Results x24hrs 10/05/17 10/05/17 Range/Units 05:02 05:02 WBC 8.3 (4.8-10.8) x10^3/uL RBC 4.99 (4.70-6.10) 10^6/uL Hgb 13.7 L (14.0-18.0) g/dL Hct 43.7 (42.0-52.0) % MCV 87.5 (80.0-94.0) fL MCH 27.5 (27.0-31.0) pg MCHC 31.5 L (32.0-36.0) g/dL RDW 15.1 H (12.0-15.0) % Plt Count 156 (130-450) 10^3/uL MPV 8.0 (7.4-11.4) fL Sodium 135 (135-145) mmol/L Potassium 4.4 (3.5-5.0) mmol/L Chloride 91 L (101-111) mmol/L Carbon Dioxide 36 H (21-32) mmol/L Anion Gap 8.0 (6-13) BUN 27 H (6-20) mg/dL Creatinine 0.5 L (0.6-1.2) mg/dL Estimated GFR (MDRD) 167 (>89) Glucose 143 H (70-100) mg/dL Calcium 8.8 (8.5-10.3) mg/dL Assessment/Plan - Problem List (1) Severe chronic obstructive pulmonary disease Impression: The patient has been oxygen dependent for many years however is now using less oxygen here at the hospital that he has used at home. He is not short of breath and is doing well since he has been moved to the medical surgical floor. Continue present care as we await placement. (2) Congestive heart failure Impression: The patient's BNP remains elevated, but has come down significantly from 1173 on admission to 487 yesterday. Continue present care. Qualifiers: Congestive heart failure type: unspecified Congestive heart failure chronicity: acute on chronic Qualified Code(s): I50.9 - Heart failure, unspecified (3) History of coronary artery disease Impression: Serial troponins were negative, no EKG changes were seen. No complaints of shortness of breath or chest pain. We will continue to monitor. (4) Dyslipidemia Impression: Well-managed, continue Lipitor. (5) Hypertension Impression: The patient has responded well to the lisinopril and hydrochlorothiazide which I ordered yesterday. His blood pressure today is well-managed with a systolic in the 110s and a diastolic in the 60s. Qualifiers: Hypertension type: essential hypertension Qualified Code(s): I10 - Essential (primary) hypertension
[2017-10-05] MEDS ORDERED: SODIUM CHLORIDE FLUSH 0.9% 10 ML SYRINGE ONE (22:55)
[2017-10-06] MEDS: PANTOPRAZOLE 40 MG TABLET PO SCH (06:23)
[2017-10-06] MEDS: PIPERACILLIN/TAZOBACTAM 3.375 GM in SODIUM CHLORIDE 0.9% MINIBAG 100 ML IV SCH ×3 (06:28→21:22)
[2017-10-06] MEDS: SODIUM CHLORIDE FLUSH 0.9% 10 ML SYRINGE IVP SCH ×3 (06:32→21:22)
[2017-10-06] MEDS: methylPREDNISolone SUCCINATE 40 MG/ML VIAL IVP SCH ×3 (06:32→21:22)
[2017-10-06] MEDS: BUDESONIDE 0.5 MG/2 ML NEB INH SCH ×2 (07:12→20:25)
[2017-10-06] MEDS: IPRATROPIUM/ALBUTEROL 3 ML NEB INH SCH ×4 (07:12→20:25)
[2017-10-06] MEDS: FUROSEMIDE 20 MG TABLET PO SCH (09:15)
[2017-10-06] MEDS: METOPROLOL TARTRATE 25 MG TABLET PO SCH ×2 (09:15→21:20)
[2017-10-06] MEDS: hydroCHLOROthiazide 25 MG TABLET PO SCH (09:15)
[2017-10-06] MEDS: LISINOPRIL 20 MG TABLET PO SCH (09:15)
[2017-10-06] MEDS: HEPARIN 5,000 UNIT/ML VIAL SUBQ SCH ×2 (09:16→21:27)
[2017-10-06] MEDS: ASPIRIN 325 MG TABLET PO SCH (09:16)
[2017-10-06] MEDS: CALCIUM CARBONATE CHEW 500 MG TABLET PO SCH ×2 (09:16→21:21)
[2017-10-06] MEDS: POLYETHYLENE GLYCOL 3350 17 GM PACKET PO SCH (09:16)
--- NOTE | 2017-10-06 10:46 | PROVIDER PROGRESS NOTE ---
Subjective - Prog Note Date Prog Note Date: 10/06/17 Prog Note Time: 10:44 - Subjective Pt reports feeling: No change (The patient feels well and has been stable. He denies any new problems. He says he slept well, denies any pain, denies any significant shortness of breath, his appetite is good and he is moving his bowels.) Current Medications - Current Medications Current Medications: Albuterol,Aspirin, budesonide, heparin, Tums, Solu-Medrol, Lopressor, metoprolol ,Morphine, Zofran, Protonix, Zosyn,Sodium chloride Objective - Vital Signs/Intake & Output Reviewed Vital Signs: Yes Vital Signs: Vital Signs x48h Temp Pulse Pulse Resp BP Pulse Ox 10/06/17 07:47 36.3 C L 68 21 123/62 96 10/06/17 07:15 68 14 Intake & Output: Intake & Output 10/03/17 10/04/17 10/05/17 10/06/17 23:59 23:59 23:59 23:59 Intake Total 1470 1090 1020 770 Output Total 2050 2175 2600 600 Balance -580 -1085 -1580 170 - Objective General Appearance: positive: No acute distress, Alert Eyes Bilateral: positive: Normal inspection, PERRL, EOMI, No lid inflammation, Conjunctivae nml, No scleral icterus ENT: positive: ENT inspection nml, Pharynx nml, No signs of dehydration Neck: positive: Nml inspection, Thyroid nml, No JVD, Trachea midline. negative : Thyromegaly Respiratory: positive: Chest non-tender, No respiratory distress, Breath sounds nml. negative: Wheezes, Rales, Rhonchi Cardiovascular: positive: Regular rate & rhythm, No murmur, No gallop Abdomen: positive: Non-tender, No organomegaly, Nml bowel sounds, No distention. negative: Guarding, Rebound Back: positive: Nml inspection. negative: CVA tenderness (R), CVA tenderness (L ) Skin: positive: Color nml, No rash, Warm, Dry. negative: Cyanosis Extremities: positive: Non-tender, Full ROM, Nml appearance Neurologic/Psychiatric: positive: Oriented x3, CN's nml (2-12), Motor nml, Sensation nml, Mood/affect nml - Lab Results Fish Bones: 10/05/17 05:02 10/05/17 05:02 Assessment/Plan - Problem List (1) Severe chronic obstructive pulmonary disease Impression: The patient has been oxygen dependent for many years however is now using the same amount of oxygen here at the hospital that he has used at home (2.5L/m). He is not short of breath and is doing well since he has been moved to the medical surgical floor. Continue present care as we await placement.The patient may be discharged as soon as placement is found. (2) Congestive heart failure Qualifiers: Congestive heart failure type: unspecified Congestive heart failure chronicity: acute on chronic Qualified Code(s): I50.9 - Heart failure, unspecified (3) History of coronary artery disease Impression: Serial troponins were negative, no EKG changes were seen. No complaints of shortness of breath or chest pain. We will continue to monitor. (4) Dyslipidemia Impression: Well-managed, continue Lipitor. (5) Hypertension Impression: The patient has responded well to the lisinopril and hydrochlorothiazide which I ordered Friday. His blood pressure today is well-managed with a systolic in the 110s and a diastolic in the 60s. Qualifiers: Hypertension type: essential hypertension Qualified Code(s): I10 - Essential (primary) hypertension
[2017-10-06] MEDS: SODIUM CHLORIDE FLUSH 0.9% 10 ML SYRINGE IVP PRN (21:22)
[2017-10-07] MEDS: BUDESONIDE 0.5 MG/2 ML NEB INH SCH ×2 (05:07→19:00)
[2017-10-07] MEDS: IPRATROPIUM/ALBUTEROL 3 ML NEB INH SCH ×4 (05:07→19:00)
[2017-10-07] MEDS: methylPREDNISolone SUCCINATE 40 MG/ML VIAL IVP SCH ×3 (06:02→21:46)
[2017-10-07] MEDS: SODIUM CHLORIDE FLUSH 0.9% 10 ML SYRINGE IVP SCH ×3 (06:03→21:46)
[2017-10-07] MEDS: PIPERACILLIN/TAZOBACTAM 3.375 GM in SODIUM CHLORIDE 0.9% MINIBAG 100 ML IV SCH ×3 (06:06→21:47)
[2017-10-07] MEDS: PANTOPRAZOLE 40 MG TABLET PO SCH (06:12)
[2017-10-07] MEDS: LISINOPRIL 20 MG TABLET PO SCH (08:28)
[2017-10-07] MEDS: METOPROLOL TARTRATE 25 MG TABLET PO SCH ×2 (08:28→20:44)
[2017-10-07] MEDS: FUROSEMIDE 20 MG TABLET PO SCH (08:28)
[2017-10-07] MEDS: CALCIUM CARBONATE CHEW 500 MG TABLET PO SCH ×2 (08:29→20:45)
[2017-10-07] MEDS: ASPIRIN 325 MG TABLET PO SCH (08:29)
[2017-10-07] MEDS: hydroCHLOROthiazide 25 MG TABLET PO SCH (08:29)
[2017-10-07] MEDS: POLYETHYLENE GLYCOL 3350 17 GM PACKET PO SCH (08:29)
[2017-10-07] MEDS: HEPARIN 5,000 UNIT/ML VIAL SUBQ SCH ×2 (08:36→20:45)
--- NOTE | 2017-10-07 10:39 | PROVIDER PROGRESS NOTE ---
Subjective - Prog Note Date Prog Note Date: 10/07/17 Prog Note Time: 10:38 - Subjective Pt reports feeling: No change (The patient is stable and denies any new problems. He says he slept well last night. His appetite is good and he is moving his bowels. He denies any fevers.) Current Medications - Current Medications Current Medications: Albuterol,Aspirin, budesonide, heparin, Tums, Solu-Medrol, Lopressor, metoprolol ,Morphine, Zofran, Protonix, Zosyn,Sodium chloride Objective - Vital Signs/Intake & Output Reviewed Vital Signs: Yes Vital Signs: Vital Signs x48h Temp Pulse Pulse Resp BP BP Pulse Ox 10/07/17 10:26 84 18 10/07/17 08:28 146/75 H 10/07/17 08:18 36.4 C L 64 18 146/75 H 93 10/07/17 05:05 70 18 Intake & Output: Intake & Output 10/04/17 10/05/17 10/06/17 10/07/17 23:59 23:59 23:59 23:59 Intake Total 1090 1020 1460 220 Output Total 2175 2600 1825 950 Balance -1085 -1580 -365 -730 - Objective General Appearance: positive: No acute distress, Alert Eyes Bilateral: positive: Normal inspection, PERRL, EOMI, No lid inflammation, Conjunctivae nml, No scleral icterus ENT: positive: ENT inspection nml, Pharynx nml, No signs of dehydration Neck: positive: Nml inspection, Thyroid nml, No JVD, Trachea midline. negative : Thyromegaly Respiratory: positive: Chest non-tender, No respiratory distress, Breath sounds nml. negative: Wheezes, Rales, Rhonchi Cardiovascular: positive: Regular rate & rhythm, No murmur, No gallop Abdomen: positive: Non-tender, No organomegaly, Nml bowel sounds, No distention. negative: Guarding, Rebound Back: positive: Nml inspection. negative: CVA tenderness (R), CVA tenderness (L ) Skin: positive: Color nml, No rash, Warm, Dry. negative: Cyanosis Extremities: positive: Non-tender, Full ROM, Nml appearance, No pedal edema Neurologic/Psychiatric: positive: Oriented x3, CN's nml (2-12), Motor nml, Sensation nml, Mood/affect nml - Lab Results Fish Bones: 10/05/17 05:02 10/05/17 05:02 Assessment/Plan - Problem List (1) Severe chronic obstructive pulmonary disease Impression: The patient has been oxygen dependent for many years however is now using the same amount of oxygen here at the hospital that he has used at home (2.5L/m). He is not short of breath and is doing well since he has been moved to the medical surgical floor. Someone from the [facility] home and community service department is coming to evaluate the patient today. Continue present care as we await placement.The patient may be discharged as soon as placement is found. (2) Congestive heart failure Impression: No evidence of any active congestive heart failure at this time. Patient is breathing easily and does not have any crackles evident in his lungs. Qualifiers: Congestive heart failure type: unspecified Congestive heart failure chronicity: acute on chronic Qualified Code(s): I50.9 - Heart failure, unspecified (3) History of coronary artery disease Impression: Serial troponins were negative, no EKG changes were seen. No complaints of shortness of breath or chest pain. We will continue to monitor. (4) Dyslipidemia Impression: Continue Lipitor (5) Hypertension Impression: Patient's blood pressure has been steadily rising over the last 2 days. I will increase his metoprolol to 50 mg twice daily and add Norvasc 5 mg daily. Qualifiers: Hypertension type: essential hypertension Qualified Code(s): I10 - Essential (primary) hypertension
[2017-10-07] MEDS: amLODIPine 5 MG TABLET PO SCH (11:08)
[2017-10-08] MEDS: methylPREDNISolone SUCCINATE 40 MG/ML VIAL IVP SCH ×3 (06:04→21:38)
[2017-10-08] MEDS: SODIUM CHLORIDE FLUSH 0.9% 10 ML SYRINGE IVP SCH ×3 (06:06→21:38)
[2017-10-08] MEDS: PANTOPRAZOLE 40 MG TABLET PO SCH (06:13)
[2017-10-08] MEDS: PIPERACILLIN/TAZOBACTAM 3.375 GM in SODIUM CHLORIDE 0.9% MINIBAG 100 ML IV SCH ×3 (06:24→21:38)
[2017-10-08] MEDS: IPRATROPIUM/ALBUTEROL 3 ML NEB INH SCH ×4 (06:53→19:15)
[2017-10-08] MEDS: BUDESONIDE 0.5 MG/2 ML NEB INH SCH ×2 (06:54→19:15)
[2017-10-08] MEDS: HEPARIN 5,000 UNIT/ML VIAL SUBQ SCH ×2 (09:02→21:08)
[2017-10-08] MEDS: amLODIPine 5 MG TABLET PO SCH (09:04)
[2017-10-08] MEDS: CALCIUM CARBONATE CHEW 500 MG TABLET PO SCH ×2 (09:04→21:07)
[2017-10-08] MEDS: METOPROLOL TARTRATE 25 MG TABLET PO SCH ×2 (09:04→21:07)
[2017-10-08] MEDS: LISINOPRIL 20 MG TABLET PO SCH (09:04)
[2017-10-08] MEDS: ASPIRIN 325 MG TABLET PO SCH (09:04)
[2017-10-08] MEDS: POLYETHYLENE GLYCOL 3350 17 GM PACKET PO SCH ×2 (09:04→09:06)
[2017-10-08] MEDS: FUROSEMIDE 20 MG TABLET PO SCH (09:04)
[2017-10-08] MEDS: hydroCHLOROthiazide 25 MG TABLET PO SCH (09:05)
[2017-10-08] MEDS: ACETAMINOPHEN 500 MG TABLET PO PRN (14:05)
--- NOTE | 2017-10-08 18:32 | PROVIDER PROGRESS NOTE ---
Assessment/Plan - Problem List (1) COPD exacerbation Assessment/Plan: This may be his baseline respiratory status. While he is being evaluated for detention placement, will document oxygen saturation: Pt uses home O2 already. Pt ambulated to check his current O2 needs. Pt uses home O2 3L/min currently. O2 saturation at rest on Room Air was 88% O2 saturation at rest on 2L/min: 90% O2 saturation with exertion on 2L/min: 80%, on 3L/min: 84%, on 4L/min: 86%, and finally on 5L/min: his sats improved to 92%. I will be ordering for supplemental home oxygen to be: 2L/min at rest and 5L/ min with any exertion. (2) History of coronary artery disease Assessment/Plan: No c/o CP since here and trops were neg Continue pre-hospital meds (3) Hypertension Qualifiers: Hypertension type: essential hypertension Qualified Code(s): I10 - Essential (primary) hypertension Assessment/Plan: Better BP control on adjusted med doses yesterday Continue present meds and will change diet to Low sodium - Current Meds Current Meds: Current Medications Generic Name Dose Route Start Last Admin Trade Name Freq PRN Reason Stop Dose Admin Acetaminophen 500 mg 10/08/17 13:54 10/08/17 14:05 Tylenol PO 500 mg Q4HR PRN Administration Pain or Fever > 38C (100.4F) Albuterol 2.5 mg 09/30/17 12:03 10/05/17 01:30 INH 2.5 mg RTQ4H PRN Administration Wheezing Albuterol/Ipratropium 3 ml 09/30/17 13:00 10/08/17 14:56 Duoneb INH 3 ml RTQID GABE Administration Amlodipine Besylate 5 mg 10/07/17 11:00 10/08/17 09:04 Norvasc PO 5 mg DAILY GABE Administration Aspirin 325 mg 09/29/17 09:00 10/08/17 09:04 Valeriy PO 325 mg DAILY GABE Administration Budesonide 0.5 mg 09/30/17 07:00 10/08/17 06:54 Pulmicort INH 0.5 mg RTBID GABE Administration Calcium Carbonate/Glycine 500 mg 10/01/17 04:00 10/08/17 09:04 Tums PO 500 mg BID GABE Administration Furosemide 20 mg 10/02/17 08:00 10/08/17 09:04 Lasix PO 20 mg DAILY GABE Administration Heparin Sodium (Porcine) 5,000 unit 09/30/17 09:00 10/08/17 09:02 SUBQ 5,000 unit BID GABE Administration Hydrochlorothiazide 25 mg 10/04/17 19:00 10/08/17 09:05 Hydrodiuril PO 25 mg DAILY GABE Administration Piperacillin Sod/Tazobactam 100 mls @ 200 mls/hr 09/30/17 08:00 10/08/17 14: 25 Sod 3.375 gm/ Sodium Chloride IV Infused Q8HR GABE Infusion Lisinopril 20 mg 10/04/17 19:00 10/08/17 09:04 Zestril PO 20 mg DAILY GABE Administration Methylprednisolone 40 mg 09/30/17 06:00 10/08/17 13:12 Solu-Medrol (40mg Vial) IVP 40 mg Q8HR GABE Administration Metoprolol Tartrate 50 mg 10/07/17 21:00 10/08/17 09:04 Lopressor PO 50 mg BID GABE Administration Morphine Sulfate 10 mg 09/30/17 20:24 10/01/17 08:20 Roxanol PO 10 mg Q2HR PRN Administration Dyspnea Pantoprazole Sodium 40 mg 09/30/17 07:00 10/08/17 06:13 Protonix PO 40 mg QDAC GABE Administration Polyethylene Glycol 17 gm 09/30/17 09:00 10/08/17 09:06 Miralax PO Not Given DAILY GABE Sodium Chloride 10 ml 09/29/17 22:12 10/06/17 21:22 Normal Saline Flush 0.9% IVP 10 ml PRN PRN Administration NEEDED PER PROVIDER ORDERS Sodium Chloride 10 ml 09/30/17 06:00 10/08/17 13:13 Normal Saline Flush 0.9% IVP 10 ml Q8HR GABE Administration Sodium Chloride 2 sprays 10/05/17 11:38 10/05/17 21:22 [place] NARCISA 2 spr Q4HR PRN Administration Nasal Congestion - Lab Result Fish Bone Diagrams: 10/05/17 05:02 10/08/17 14:53 - Additional Planning My Orders: My Active Orders 10/08/17 13:54 Acetaminophen [Tylenol] 500 mg PO Q4HR PRN Subjective - Subjective Patient Reports: Feeling Better, Resting Comfortably Nursing Reports: No Complaints Objective Vital Signs: Vital Signs - 24 hr 10/07/17 10/08/17 10/08/17 19:00 00:18 06:54 Temperature 36.8 C Heart Rate 80 64 Heart Rate [ 70 Brachial] Respiratory 18 20 20 Rate Blood Pressure Blood Pressure 128/72 [Right Brachial artery] O2 Saturation 99 10/08/17 10/08/17 10/08/17 08:47 09:04 14:57 Temperature 36.3 C L Heart Rate 89 Heart Rate [ 77 Brachial] Respiratory 16 20 Rate Blood Pressure 123/62 Blood Pressure 123/62 [Right Brachial artery] O2 Saturation 92 10/08/17 15:51 Temperature 36.8 C Heart Rate Heart Rate [ 77 Brachial] Respiratory 20 Rate Blood Pressure Blood Pressure 159/65 H [Right Brachial artery] O2 Saturation 92 Oxygen O2 Source Nasal cannula I&O (Last 24 Hrs): Intake and Output Totals x24h 10/06/17 10/07/17 10/08/17 23:59 23:59 23:59 Intake Total 1460 760 660 Output Total 1825 2500 1440 Balance -365 -1740 -780 General: Alert, Oriented x3, No acute distress HEENT: Mucous membr. moist/pink Neck: Supple Neuro: Non Focal Cardiovascular: Regular rate, No murmurs Respiratory: Other (Severely diminished BS diffusely but no wheezing) Abdomen: Soft Extremities: No edema - Results Results: Laboratory Results WBC 8.3 x10^3/uL (4.8-10.8) 10/05/17 05:02 RBC 4.99 10^6/uL (4.70-6.10) 10/05/17 05:02 Hgb 13.7 g/dL (14.0-18.0) L 10/05/17 05:02 Hct 43.7 % (42.0-52.0) 10/05/17 05:02 MCV 87.5 fL (80.0-94.0) 10/05/17 05:02 MCH 27.5 pg (27.0-31.0) 10/05/17 05:02 MCHC 31.5 g/dL (32.0-36.0) L 10/05/17 05:02 RDW 15.1 % (12.0-15.0) H 10/05/17 05:02 Plt Count 156 10^3/uL (130-450) 10/05/17 05:02 MPV 8.0 fL (7.4-11.4) 10/05/17 05:02 Neut # Not Reportable 09/29/17 20:05 Lymph # Not Reportable 09/29/17 20:05 [place] # Not Reportable 09/29/17 20:05 Eos # Not Reportable 09/29/17 20:05 Baso # Not Reportable 09/29/17 20:05 Absolute Nucleated RBC Not Reportable 09/29/17 20:05 Total Counted 100 09/29/17 20:05 Band Neuts % (Manual) 4 % (0-10) 09/29/17 20:05 Reactive Lymphs % (Man) 4 % 09/29/17 20:05 Abnorm Lymph % (Manual) 0 % 09/29/17 20:05 Nucleated RBC % Not Reportable 09/29/17 20:05 Neutrophils # (Manual) 6.7 10^3/uL (1.5-6.6) H 09/29/17 20:05 Lymphocytes # (Manual) 1.5 10^3/uL (1.5-3.5) 09/29/17 20:05 Monocytes # (Manual) 0.3 10^3/uL (0.0-1.0) 09/29/17 20:05 Eosinophils # (Manual) 0.0 10^3/uL (0-0.7) 09/29/17 20:05 Basophils # (Manual) 0.0 10^3/uL (0-0.1) 09/29/17 20:05 Differential Comment MANUAL DIFFERENTIAL 09/29/17 20:05 Platelet Estimate NORMAL (130-450,000) (NORMAL) 09/29/17 20:05 Platelet Morphology NORMAL APPEARANCE (NORMAL) 09/29/17 20:05 RBC Morph Micro Appear NORMAL APPEARANCE (NORMAL) 09/29/17 20:05 Sodium 135 mmol/L (135-145) 10/05/17 05:02 Potassium 4.1 mmol/L (3.5-5.0) 10/08/17 14:53 Chloride 91 mmol/L (101-111) L 10/05/17 05:02 Carbon Dioxide 36 mmol/L (21-32) H 10/05/17 05:02 Anion Gap 8.0 (6-13) 10/05/17 05:02 BUN 27 mg/dL (6-20) H 10/05/17 05:02 Creatinine 0.5 mg/dL (0.6-1.2) L 10/05/17 05:02 Estimated GFR (MDRD) 167 (>89) 10/05/17 05:02 Glucose 143 mg/dL (70-100) H 10/05/17 05:02 Calcium 8.8 mg/dL (8.5-10.3) 10/05/17 05:02 Total Bilirubin 0.8 mg/dL (0.2-1.0) 09/29/17 20:05 AST 40 IU/L (10-42) 09/29/17 20:05 ALT 28 IU/L (10-60) 09/29/17 20:05 Alkaline Phosphatase 72 IU/L (42-121) 09/29/17 20:05 Troponin I < 0.04 ng/mL (<0.49) 09/30/17 06:10 B-Natriuretic Peptide 487 pg/mL (5-100) H 10/04/17 06:05 Total Protein 7.9 g/dL (6.7-8.2) 09/29/17 20:05 Albumin 4.0 g/dL (3.2-5.5) 09/29/17 20:05 Globulin 3.9 g/dL (2.1-4.2) 09/29/17 20:05 Albumin/Globulin Ratio 1.0 (1.0-2.2) 09/29/17 20:05 Lipase 30 U/L (22-51) 09/29/17 20:05 Urine Color YELLOW 09/29/17 23:00 Urine Clarity CLEAR (CLEAR) 09/29/17 23:00 Urine pH 5.5 PH (5.0-7.5) 09/29/17 23:00 Ur Specific [place] 1.010 (1.002-1.030) 09/29/17 23:00 Urine Protein NEGATIVE mg/dL (NEGATIVE) 09/29/17 23:00 Urine Glucose (UA) NEGATIVE mg/dL (NEGATIVE) 09/29/17 23:00 Urine Ketones NEGATIVE mg/dL (NEGATIVE) 09/29/17 23:00 Urine Occult Blood TRACE-LYSE (NEGATIVE) 09/29/17 23:00 Urine Nitrite NEGATIVE (NEGATIVE) 09/29/17 23:00 Urine Bilirubin NEGATIVE (NEGATIVE) 09/29/17 23:00 Urine Urobilinogen 0.2 (NORMAL) E.U./dL (NORMAL) 09/29/17 23:00 Ur Leukocyte Esterase NEGATIVE (NEGATIVE) 09/29/17 23:00 Urine RBC 6-10 /HPF (0-5) H 09/29/17 23:00 Urine WBC 0-3 /HPF (0-3) 09/29/17 23:00 Ur Squamous Epith Cells RARE Squamous (<= Few) 09/29/17 23:00 Urine Bacteria Rare /HPF (None Seen) 09/29/17 23:00 Urine Casts 6-10 Hyaline Casts /LPF 09/29/17 23:00 Urine Mucus Few Strands 09/29/17 23:00 Urine Culture Comments NOT INDICATED 09/29/17 23:00 Salicylates < 6.0 mg/dL 09/29/17 22:29 Urine Opiates Screen NEGATIVE (NEGATIVE) 09/29/17 23:00 Ur Oxycodone Screen NEGATIVE (NEGATIVE) 09/29/17 23:00 Urine Methadone Screen NEGATIVE (NEGATIVE) 09/29/17 23:00 Ur Propoxyphene Screen NEGATIVE (NEGATIVE) 09/29/17 23:00 Acetaminophen < 10 ug/mL (10-30) L 09/29/17 22:29 Ur Barbiturates Screen NEGATIVE (NEGATIVE) 09/29/17 23:00 Ur Tricyclics Screen NEGATIVE (NEGATIVE) 09/29/17 23:00 Ur Phencyclidine Scrn NEGATIVE (NEGATIVE) 09/29/17 23:00 Ur Amphetamine Screen NEGATIVE (NEGATIVE) 09/29/17 23:00 U Methamphetamines Scrn NEGATIVE (NEGATIVE) 09/29/17 23:00 U Benzodiazepines Scrn NEGATIVE (NEGATIVE) 09/29/17 23:00 Urine Cocaine Screen NEGATIVE (NEGATIVE) 09/29/17 23:00 U Cannabinoids Screen NEGATIVE (NEGATIVE) 09/29/17 23:00 - Procedures Procedures: Procedures INSERT INFUSION DEV IN R INT JUGULAR VEIN, PERC (02/25/16) RESPIRATORY VENTILATION, LESS THAN 24 CONSECUTIVE HOURS (02/25/16) ULTRASONOGRAPHY OF RIGHT JUGULAR VEINS, GUIDANCE (02/25/16)
[2017-10-09] MEDS: PANTOPRAZOLE 40 MG TABLET PO SCH (06:37)
[2017-10-09] MEDS: PIPERACILLIN/TAZOBACTAM 3.375 GM in SODIUM CHLORIDE 0.9% MINIBAG 100 ML IV SCH ×3 (06:37→21:45)
[2017-10-09] MEDS: methylPREDNISolone SUCCINATE 40 MG/ML VIAL IVP SCH ×3 (06:37→21:44)
[2017-10-09] MEDS: SODIUM CHLORIDE FLUSH 0.9% 10 ML SYRINGE IVP SCH ×3 (06:37→23:35)
[2017-10-09] MEDS: BUDESONIDE 0.5 MG/2 ML NEB INH SCH ×2 (07:21→19:34)
[2017-10-09] MEDS: IPRATROPIUM/ALBUTEROL 3 ML NEB INH SCH ×4 (07:21→19:34)
[2017-10-09] MEDS: METOPROLOL TARTRATE 25 MG TABLET PO SCH ×2 (08:02→21:55)
[2017-10-09] MEDS: CALCIUM CARBONATE CHEW 500 MG TABLET PO SCH ×2 (08:02→21:48)
[2017-10-09] MEDS: FUROSEMIDE 20 MG TABLET PO SCH (08:03)
[2017-10-09] MEDS: amLODIPine 5 MG TABLET PO SCH (08:03)
[2017-10-09] MEDS: ASPIRIN 325 MG TABLET PO SCH (08:03)
[2017-10-09] MEDS: POLYETHYLENE GLYCOL 3350 17 GM PACKET PO SCH (08:03)
[2017-10-09] MEDS: LISINOPRIL 20 MG TABLET PO SCH (08:03)
[2017-10-09] MEDS: hydroCHLOROthiazide 25 MG TABLET PO SCH (08:03)
[2017-10-09] MEDS: HEPARIN 5,000 UNIT/ML VIAL SUBQ SCH ×2 (08:05→21:49)
[2017-10-09] MEDS: SODIUM CHLORIDE FLUSH 0.9% 10 ML SYRINGE IVP PRN (13:20)
--- NOTE | 2017-10-09 15:36 | PROVIDER PROGRESS NOTE ---
Assessment/Plan - Problem List (1) COPD exacerbation Assessment/Plan: Stable from a respiratory standpoint. Awaiting DCh and placement Cont present pulmonary management and supplemental oxygen lifelong (2) History of coronary artery disease Assessment/Plan: Stable (3) Hypertension Qualifiers: Hypertension type: essential hypertension Qualified Code(s): I10 - Essential (primary) hypertension Assessment/Plan: Stable - Current Meds Current Meds: Current Medications Generic Name Dose Route Start Last Admin Trade Name Freq PRN Reason Stop Dose Admin Acetaminophen 500 mg 10/08/17 13:54 10/08/17 14:05 Tylenol PO 500 mg Q4HR PRN Administration Pain or Fever > 38C (100.4F) Albuterol 2.5 mg 09/30/17 12:03 10/05/17 01:30 INH 2.5 mg RTQ4H PRN Administration Wheezing Albuterol/Ipratropium 3 ml 09/30/17 13:00 10/09/17 11:26 Duoneb INH 3 ml RTQID GABE Administration Amlodipine Besylate 5 mg 10/07/17 11:00 10/09/17 08:03 Norvasc PO 5 mg DAILY GABE Administration Aspirin 325 mg 09/29/17 09:00 10/09/17 08:03 Valeriy PO 325 mg DAILY GABE Administration Budesonide 0.5 mg 09/30/17 07:00 10/09/17 07:21 Pulmicort INH 0.5 mg RTBID GABE Administration Calcium Carbonate/Glycine 500 mg 10/01/17 04:00 10/09/17 08:02 Tums PO 500 mg BID GABE Administration Furosemide 20 mg 10/02/17 08:00 10/09/17 08:03 Lasix PO 20 mg DAILY GABE Administration Heparin Sodium (Porcine) 5,000 unit 09/30/17 09:00 10/09/17 08:05 SUBQ 5,000 unit BID GABE Administration Hydrochlorothiazide 25 mg 10/04/17 19:00 10/09/17 08:03 Hydrodiuril PO 25 mg DAILY GABE Administration Piperacillin Sod/Tazobactam 100 mls @ 200 mls/hr 09/30/17 08:00 10/09/17 14: 24 Sod 3.375 gm/ Sodium Chloride IV Infused Q8HR GABE Infusion Lisinopril 20 mg 10/04/17 19:00 10/09/17 08:03 Zestril PO 20 mg DAILY GABE Administration Methylprednisolone 40 mg 09/30/17 06:00 10/09/17 13:19 Solu-Medrol (40mg Vial) IVP 40 mg Q8HR GABE Administration Metoprolol Tartrate 50 mg 10/07/17 21:00 10/09/17 08:02 Lopressor PO 50 mg BID GABE Administration Morphine Sulfate 10 mg 09/30/17 20:24 10/01/17 08:20 Roxanol PO 10 mg Q2HR PRN Administration Dyspnea Pantoprazole Sodium 40 mg 09/30/17 07:00 10/09/17 06:37 Protonix PO 40 mg QDAC GABE Administration Polyethylene Glycol 17 gm 09/30/17 09:00 10/09/17 08:03 Miralax PO Not Given DAILY GABE Sodium Chloride 10 ml 09/29/17 22:12 10/09/17 13:20 Normal Saline Flush 0.9% IVP 10 ml PRN PRN Administration NEEDED PER PROVIDER ORDERS Sodium Chloride 10 ml 09/30/17 06:00 10/09/17 13:19 Normal Saline Flush 0.9% IVP 10 ml Q8HR GABE Administration Sodium Chloride 2 sprays 10/05/17 11:38 10/05/17 21:22 [place] NARCISA 2 spr Q4HR PRN Administration Nasal Congestion - Lab Result Fish Bone Diagrams: 10/05/17 05:02 10/08/17 14:53 - Additional Planning My Orders: My Active Orders 10/09/17 Breakfast DIET [Low Sodium Diet] [DIET] Subjective - Subjective Patient Reports: Resting Comfortably Nursing Reports: No Complaints Objective Vital Signs: Vital Signs - 24 hr 10/08/17 10/08/17 10/08/17 15:51 19:15 23:30 Temperature 36.8 C 36.4 C L Heart Rate 76 Heart Rate [ 77 75 Brachial] Respiratory 20 20 16 Rate Blood Pressure Blood Pressure 159/65 H 143/82 H [Right Brachial artery] O2 Saturation 92 91 L 10/09/17 10/09/17 10/09/17 07:21 08:02 08:51 Temperature 36.2 C L Heart Rate 61 Heart Rate [ 74 Brachial] Respiratory 14 16 Rate Blood Pressure 155/79 H Blood Pressure 155/79 H [Right Brachial artery] O2 Saturation 96 10/09/17 11:26 Temperature Heart Rate 64 Heart Rate [ Brachial] Respiratory 14 Rate Blood Pressure Blood Pressure [Right Brachial artery] O2 Saturation Oxygen O2 Source Nasal cannula I&O (Last 24 Hrs): Intake and Output Totals x24h 10/07/1718 10/09/17 23:59 23:59 23:59 Intake Total 760 760 810 Output Total 3688 8435 1934 Balance -1740 -980 -465 General: Alert HEENT: Mucous membr. moist/pink Neck: No JVD Cardiovascular: No murmurs Respiratory: Other (Diminished but no) Abdomen: Soft Extremities: No edema - Results Results: Laboratory Results WBC 8.3 x10^3/uL (4.8-10.8) 10/05/17 05:02 RBC 4.99 10^6/uL (4.70-6.10) 10/05/17 05:02 Hgb 13.7 g/dL (14.0-18.0) L 10/05/17 05:02 Hct 43.7 % (42.0-52.0) 10/05/17 05:02 MCV 87.5 fL (80.0-94.0) 10/05/17 05:02 MCH 27.5 pg (27.0-31.0) 10/05/17 05:02 MCHC 31.5 g/dL (32.0-36.0) L 10/05/17 05:02 RDW 15.1 % (12.0-15.0) H 10/05/17 05:02 Plt Count 156 10^3/uL (130-450) 10/05/17 05:02 MPV 8.0 fL (7.4-11.4) 10/05/17 05:02 Neut # Not Reportable 09/29/17 20:05 Lymph # Not Reportable 09/29/17 20:05 [place] # Not Reportable 09/29/17 20:05 Eos # Not Reportable 09/29/17 20:05 Baso # Not Reportable 09/29/17 20:05 Absolute Nucleated RBC Not Reportable 09/29/17 20:05 Total Counted 100 09/29/17 20:05 Band Neuts % (Manual) 4 % (0-10) 09/29/17 20:05 Reactive Lymphs % (Man) 4 % 09/29/17 20:05 Abnorm Lymph % (Manual) 0 % 09/29/17 20:05 Nucleated RBC % Not Reportable 09/29/17 20:05 Neutrophils # (Manual) 6.7 10^3/uL (1.5-6.6) H 09/29/17 20:05 Lymphocytes # (Manual) 1.5 10^3/uL (1.5-3.5) 09/29/17 20:05 Monocytes # (Manual) 0.3 10^3/uL (0.0-1.0) 09/29/17 20:05 Eosinophils # (Manual) 0.0 10^3/uL (0-0.7) 09/29/17 20:05 Basophils # (Manual) 0.0 10^3/uL (0-0.1) 09/29/17 20:05 Differential Comment MANUAL DIFFERENTIAL 09/29/17 20:05 Platelet Estimate NORMAL (130-450,000) (NORMAL) 09/29/17 20:05 Platelet Morphology NORMAL APPEARANCE (NORMAL) 09/29/17 20:05 RBC Morph Micro Appear NORMAL APPEARANCE (NORMAL) 09/29/17 20:05 Sodium 135 mmol/L (135-145) 10/05/17 05:02 Potassium 4.1 mmol/L (3.5-5.0) 10/08/17 14:53 Chloride 91 mmol/L (101-111) L 10/05/17 05:02 Carbon Dioxide 36 mmol/L (21-32) H 10/05/17 05:02 Anion Gap 8.0 (6-13) 10/05/17 05:02 BUN 27 mg/dL (6-20) H 10/05/17 05:02 Creatinine 0.5 mg/dL (0.6-1.2) L 10/05/17 05:02 Estimated GFR (MDRD) 167 (>89) 10/05/17 05:02 Glucose 143 mg/dL (70-100) H 10/05/17 05:02 Calcium 8.8 mg/dL (8.5-10.3) 10/05/17 05:02 Total Bilirubin 0.8 mg/dL (0.2-1.0) 09/29/17 20:05 AST 40 IU/L (10-42) 09/29/17 20:05 ALT 28 IU/L (10-60) 09/29/17 20:05 Alkaline Phosphatase 72 IU/L (42-121) 09/29/17 20:05 Troponin I < 0.04 ng/mL (<0.49) 09/30/17 06:10 B-Natriuretic Peptide 487 pg/mL (5-100) H 10/04/17 06:05 Total Protein 7.9 g/dL (6.7-8.2) 09/29/17 20:05 Albumin 4.0 g/dL (3.2-5.5) 09/29/17 20:05 Globulin 3.9 g/dL (2.1-4.2) 09/29/17 20:05 Albumin/Globulin Ratio 1.0 (1.0-2.2) 09/29/17 20:05 Lipase 30 U/L (22-51) 09/29/17 20:05 Urine Color YELLOW 09/29/17 23:00 Urine Clarity CLEAR (CLEAR) 09/29/17 23:00 Urine pH 5.5 PH (5.0-7.5) 09/29/17 23:00 Ur Specific [place] 1.010 (1.002-1.030) 09/29/17 23:00 Urine Protein NEGATIVE mg/dL (NEGATIVE) 09/29/17 23:00 Urine Glucose (UA) NEGATIVE mg/dL (NEGATIVE) 09/29/17 23:00 Urine Ketones NEGATIVE mg/dL (NEGATIVE) 09/29/17 23:00 Urine Occult Blood TRACE-LYSE (NEGATIVE) 09/29/17 23:00 Urine Nitrite NEGATIVE (NEGATIVE) 09/29/17 23:00 Urine Bilirubin NEGATIVE (NEGATIVE) 09/29/17 23:00 Urine Urobilinogen 0.2 (NORMAL) E.U./dL (NORMAL) 09/29/17 23:00 Ur Leukocyte Esterase NEGATIVE (NEGATIVE) 09/29/17 23:00 Urine RBC 6-10 /HPF (0-5) H 09/29/17 23:00 Urine WBC 0-3 /HPF (0-3) 09/29/17 23:00 Ur Squamous Epith Cells RARE Squamous (<= Few) 09/29/17 23:00 Urine Bacteria Rare /HPF (None Seen) 09/29/17 23:00 Urine Casts 6-10 Hyaline Casts /LPF 09/29/17 23:00 Urine Mucus Few Strands 09/29/17 23:00 Urine Culture Comments NOT INDICATED 09/29/17 23:00 Salicylates < 6.0 mg/dL 09/29/17 22:29 Urine Opiates Screen NEGATIVE (NEGATIVE) 09/29/17 23:00 Ur Oxycodone Screen NEGATIVE (NEGATIVE) 09/29/17 23:00 Urine Methadone Screen NEGATIVE (NEGATIVE) 09/29/17 23:00 Ur Propoxyphene Screen NEGATIVE (NEGATIVE) 09/29/17 23:00 Acetaminophen < 10 ug/mL (10-30) L 09/29/17 22:29 Ur Barbiturates Screen NEGATIVE (NEGATIVE) 09/29/17 23:00 Ur Tricyclics Screen NEGATIVE (NEGATIVE) 09/29/17 23:00 Ur Phencyclidine Scrn NEGATIVE (NEGATIVE) 09/29/17 23:00 Ur Amphetamine Screen NEGATIVE (NEGATIVE) 09/29/17 23:00 U Methamphetamines Scrn NEGATIVE (NEGATIVE) 09/29/17 23:00 U Benzodiazepines Scrn NEGATIVE (NEGATIVE) 09/29/17 23:00 Urine Cocaine Screen NEGATIVE (NEGATIVE) 09/29/17 23:00 U Cannabinoids Screen NEGATIVE (NEGATIVE) 09/29/17 23:00 - Procedures Procedures: Procedures INSERT INFUSION DEV IN R INT JUGULAR VEIN, PERC (02/25/16) RESPIRATORY VENTILATION, LESS THAN 24 CONSECUTIVE HOURS (02/25/16) ULTRASONOGRAPHY OF RIGHT JUGULAR VEINS, GUIDANCE (02/25/16)
[2017-10-10] MEDS: SODIUM CHLORIDE FLUSH 0.9% 10 ML SYRINGE IVP SCH ×3 (06:08→21:20)
[2017-10-10] MEDS: PANTOPRAZOLE 40 MG TABLET PO SCH (06:08)
[2017-10-10] MEDS: methylPREDNISolone SUCCINATE 40 MG/ML VIAL IVP SCH ×3 (06:09→21:19)
[2017-10-10] MEDS: PIPERACILLIN/TAZOBACTAM 3.375 GM in SODIUM CHLORIDE 0.9% MINIBAG 100 ML IV SCH ×3 (06:09→21:18)
[2017-10-10] MEDS: IPRATROPIUM/ALBUTEROL 3 ML NEB INH SCH ×4 (07:19→19:00)
[2017-10-10] MEDS: BUDESONIDE 0.5 MG/2 ML NEB INH SCH ×2 (07:19→19:00)
[2017-10-10] MEDS: amLODIPine 5 MG TABLET PO SCH (08:48)
[2017-10-10] MEDS: ASPIRIN 325 MG TABLET PO SCH (08:48)
[2017-10-10] MEDS: HEPARIN 5,000 UNIT/ML VIAL SUBQ SCH ×2 (08:49→21:26)
[2017-10-10] MEDS: CALCIUM CARBONATE CHEW 500 MG TABLET PO SCH ×2 (08:49→21:20)
[2017-10-10] MEDS: FUROSEMIDE 20 MG TABLET PO SCH (08:49)
[2017-10-10] MEDS: hydroCHLOROthiazide 25 MG TABLET PO SCH (08:50)
[2017-10-10] MEDS: METOPROLOL TARTRATE 25 MG TABLET PO SCH ×2 (08:50→21:27)
[2017-10-10] MEDS: LISINOPRIL 20 MG TABLET PO SCH (08:52)
[2017-10-10] MEDS: POLYETHYLENE GLYCOL 3350 17 GM PACKET PO SCH (08:52)
--- NOTE | 2017-10-10 17:38 | PROVIDER PROGRESS NOTE ---
Assessment/Plan - Problem List (1) COPD exacerbation Assessment/Plan: Stable resp. status and ready for DCh to a SNF, Social Work is working on [employer]. (2) History of coronary artery disease Assessment/Plan: Stable on current meds (3) Hypertension Qualifiers: Hypertension type: essential hypertension Qualified Code(s): I10 - Essential (primary) hypertension Assessment/Plan: Stable on current meds - Current Meds Current Meds: Current Medications Generic Name Dose Route Start Last Admin Trade Name Freq PRN Reason Stop Dose Admin Acetaminophen 500 mg 10/08/17 13:54 10/08/17 14:05 Tylenol PO 500 mg Q4HR PRN Administration Pain or Fever > 38C (100.4F) Albuterol 2.5 mg 09/30/17 12:03 10/05/17 01:30 INH 2.5 mg RTQ4H PRN Administration Wheezing Albuterol/Ipratropium 3 ml 09/30/17 13:00 10/10/17 15:02 Duoneb INH 3 ml RTQID GABE Administration Amlodipine Besylate 5 mg 10/07/17 11:00 10/10/17 08:48 Norvasc PO 5 mg DAILY GABE Administration Aspirin 325 mg 09/29/17 09:00 10/10/17 08:48 Valeriy PO 325 mg DAILY GABE Administration Budesonide 0.5 mg 09/30/17 07:00 10/10/17 07:19 Pulmicort INH 0.5 mg RTBID GABE Administration Calcium Carbonate/Glycine 500 mg 10/01/17 04:00 10/10/17 08:49 Tums PO 500 mg BID GABE Administration Furosemide 20 mg 10/02/17 08:00 10/10/17 08:49 Lasix PO 20 mg DAILY GABE Administration Heparin Sodium (Porcine) 5,000 unit 09/30/17 09:00 10/10/17 08:49 SUBQ 5,000 unit BID GABE Administration Hydrochlorothiazide 25 mg 10/04/17 19:00 10/10/17 08:50 Hydrodiuril PO 25 mg DAILY GABE Administration Piperacillin Sod/Tazobactam 100 mls @ 200 mls/hr 09/30/17 08:00 10/10/17 14: 15 Sod 3.375 gm/ Sodium Chloride IV Infused Q8HR GABE Infusion Lisinopril 20 mg 10/04/17 19:00 10/10/17 08:52 Zestril PO 20 mg DAILY GABE Administration Methylprednisolone 40 mg 09/30/17 06:00 10/10/17 13:37 Solu-Medrol (40mg Vial) IVP 40 mg Q8HR GABE Administration Metoprolol Tartrate 50 mg 10/07/17 21:00 10/10/17 08:50 Lopressor PO 50 mg BID GABE Administration Morphine Sulfate 10 mg 09/30/17 20:24 10/01/17 08:20 Roxanol PO 10 mg Q2HR PRN Administration Dyspnea Pantoprazole Sodium 40 mg 09/30/17 07:00 10/10/17 06:08 Protonix PO 40 mg QDAC GABE Administration Polyethylene Glycol 17 gm 09/30/17 09:00 10/10/17 08:52 Miralax PO Not Given DAILY GABE Sodium Chloride 10 ml 09/29/17 22:12 10/09/17 13:20 Normal Saline Flush 0.9% IVP 10 ml PRN PRN Administration NEEDED PER PROVIDER ORDERS Sodium Chloride 10 ml 09/30/17 06:00 10/10/17 13:45 Normal Saline Flush 0.9% IVP 10 ml Q8HR GABE Administration Sodium Chloride 2 sprays 10/05/17 11:38 10/05/17 21:22 [place] NARCISA 2 spr Q4HR PRN Administration Nasal Congestion - Lab Result Fish Bone Diagrams: 10/05/17 05:02 10/08/17 14:53 Subjective - Subjective Patient Reports: No Complaints Nursing Reports: No Complaints Objective Vital Signs: Vital Signs - 24 hr 10/09/17 10/09/17 10/09/17 19:34 21:55 23:30 Temperature 36.5 C Heart Rate 69 Heart Rate [ 62 Brachial] Respiratory 14 16 Rate Blood Pressure 155/79 H Blood Pressure 133/62 H [Right Brachial artery] O2 Saturation 95 10/10/17 10/10/17 10/10/17 07:19 08:00 08:50 Temperature 36.4 C L Heart Rate 62 Heart Rate [ 56 L Brachial] Respiratory 14 18 Rate Blood Pressure 156/80 H Blood Pressure 156/80 H [Right Brachial artery] O2 Saturation 93 10/10/17 10/10/17 10/10/17 11:25 15:02 15:29 Temperature 36.3 C L Heart Rate 61 64 Heart Rate [ 67 Brachial] Respiratory 14 14 16 Rate Blood Pressure Blood Pressure 125/63 [Right Brachial artery] O2 Saturation 94 Oxygen O2 Source Oxymask I&O (Last 24 Hrs): Intake and Output Totals x24h 10/08/17 10/09/17 10/10/17 23:59 23:59 23:59 Intake Total 852 518 5660 Output Total 1740 9317 2125 Balance -155 -788 -3707 General: Alert HEENT: Mucous membr. moist/pink Cardiovascular: No murmurs Respiratory: Other (diminished but no rales or wheezing) Extremities: No edema - Results Results: Laboratory Results WBC 8.3 x10^3/uL (4.8-10.8) 10/05/17 05:02 RBC 4.99 10^6/uL (4.70-6.10) 10/05/17 05:02 Hgb 13.7 g/dL (14.0-18.0) L 10/05/17 05:02 Hct 43.7 % (42.0-52.0) 10/05/17 05:02 MCV 87.5 fL (80.0-94.0) 10/05/17 05:02 MCH 27.5 pg (27.0-31.0) 10/05/17 05:02 MCHC 31.5 g/dL (32.0-36.0) L 10/05/17 05:02 RDW 15.1 % (12.0-15.0) H 10/05/17 05:02 Plt Count 156 10^3/uL (130-450) 10/05/17 05:02 MPV 8.0 fL (7.4-11.4) 10/05/17 05:02 Neut # Not Reportable 09/29/17 20:05 Lymph # Not Reportable 09/29/17 20:05 [place] # Not Reportable 09/29/17 20:05 Eos # Not Reportable 09/29/17 20:05 Baso # Not Reportable 09/29/17 20:05 Absolute Nucleated RBC Not Reportable 09/29/17 20:05 Total Counted 100 09/29/17 20:05 Band Neuts % (Manual) 4 % (0-10) 09/29/17 20:05 Reactive Lymphs % (Man) 4 % 09/29/17 20:05 Abnorm Lymph % (Manual) 0 % 09/29/17 20:05 Nucleated RBC % Not Reportable 09/29/17 20:05 Neutrophils # (Manual) 6.7 10^3/uL (1.5-6.6) H 09/29/17 20:05 Lymphocytes # (Manual) 1.5 10^3/uL (1.5-3.5) 09/29/17 20:05 Monocytes # (Manual) 0.3 10^3/uL (0.0-1.0) 09/29/17 20:05 Eosinophils # (Manual) 0.0 10^3/uL (0-0.7) 09/29/17 20:05 Basophils # (Manual) 0.0 10^3/uL (0-0.1) 09/29/17 20:05 Differential Comment MANUAL DIFFERENTIAL 09/29/17 20:05 Platelet Estimate NORMAL (130-450,000) (NORMAL) 09/29/17 20:05 Platelet Morphology NORMAL APPEARANCE (NORMAL) 09/29/17 20:05 RBC Morph Micro Appear NORMAL APPEARANCE (NORMAL) 09/29/17 20:05 Sodium 135 mmol/L (135-145) 10/05/17 05:02 Potassium 4.1 mmol/L (3.5-5.0) 10/08/17 14:53 Chloride 91 mmol/L (101-111) L 10/05/17 05:02 Carbon Dioxide 36 mmol/L (21-32) H 10/05/17 05:02 Anion Gap 8.0 (6-13) 10/05/17 05:02 BUN 27 mg/dL (6-20) H 10/05/17 05:02 Creatinine 0.5 mg/dL (0.6-1.2) L 10/05/17 05:02 Estimated GFR (MDRD) 167 (>89) 10/05/17 05:02 Glucose 143 mg/dL (70-100) H 10/05/17 05:02 Calcium 8.8 mg/dL (8.5-10.3) 10/05/17 05:02 Total Bilirubin 0.8 mg/dL (0.2-1.0) 09/29/17 20:05 AST 40 IU/L (10-42) 09/29/17 20:05 ALT 28 IU/L (10-60) 09/29/17 20:05 Alkaline Phosphatase 72 IU/L (42-121) 09/29/17 20:05 Troponin I < 0.04 ng/mL (<0.49) 09/30/17 06:10 B-Natriuretic Peptide 487 pg/mL (5-100) H 10/04/17 06:05 Total Protein 7.9 g/dL (6.7-8.2) 09/29/17 20:05 Albumin 4.0 g/dL (3.2-5.5) 09/29/17 20:05 Globulin 3.9 g/dL (2.1-4.2) 09/29/17 20:05 Albumin/Globulin Ratio 1.0 (1.0-2.2) 09/29/17 20:05 Lipase 30 U/L (22-51) 09/29/17 20:05 Urine Color YELLOW 09/29/17 23:00 Urine Clarity CLEAR (CLEAR) 09/29/17 23:00 Urine pH 5.5 PH (5.0-7.5) 09/29/17 23:00 Ur Specific [place] 1.010 (1.002-1.030) 09/29/17 23:00 Urine Protein NEGATIVE mg/dL (NEGATIVE) 09/29/17 23:00 Urine Glucose (UA) NEGATIVE mg/dL (NEGATIVE) 09/29/17 23:00 Urine Ketones NEGATIVE mg/dL (NEGATIVE) 09/29/17 23:00 Urine Occult Blood TRACE-LYSE (NEGATIVE) 09/29/17 23:00 Urine Nitrite NEGATIVE (NEGATIVE) 09/29/17 23:00 Urine Bilirubin NEGATIVE (NEGATIVE) 09/29/17 23:00 Urine Urobilinogen 0.2 (NORMAL) E.U./dL (NORMAL) 09/29/17 23:00 Ur Leukocyte Esterase NEGATIVE (NEGATIVE) 09/29/17 23:00 Urine RBC 6-10 /HPF (0-5) H 09/29/17 23:00 Urine WBC 0-3 /HPF (0-3) 09/29/17 23:00 Ur Squamous Epith Cells RARE Squamous (<= Few) 09/29/17 23:00 Urine Bacteria Rare /HPF (None Seen) 09/29/17 23:00 Urine Casts 6-10 Hyaline Casts /LPF 09/29/17 23:00 Urine Mucus Few Strands 09/29/17 23:00 Urine Culture Comments NOT INDICATED 09/29/17 23:00 Salicylates < 6.0 mg/dL 09/29/17 22:29 Urine Opiates Screen NEGATIVE (NEGATIVE) 09/29/17 23:00 Ur Oxycodone Screen NEGATIVE (NEGATIVE) 09/29/17 23:00 Urine Methadone Screen NEGATIVE (NEGATIVE) 09/29/17 23:00 Ur Propoxyphene Screen NEGATIVE (NEGATIVE) 09/29/17 23:00 Acetaminophen < 10 ug/mL (10-30) L 09/29/17 22:29 Ur Barbiturates Screen NEGATIVE (NEGATIVE) 09/29/17 23:00 Ur Tricyclics Screen NEGATIVE (NEGATIVE) 09/29/17 23:00 Ur Phencyclidine Scrn NEGATIVE (NEGATIVE) 09/29/17 23:00 Ur Amphetamine Screen NEGATIVE (NEGATIVE) 09/29/17 23:00 U Methamphetamines Scrn NEGATIVE (NEGATIVE) 09/29/17 23:00 U Benzodiazepines Scrn NEGATIVE (NEGATIVE) 09/29/17 23:00 Urine Cocaine Screen NEGATIVE (NEGATIVE) 09/29/17 23:00 U Cannabinoids Screen NEGATIVE (NEGATIVE) 09/29/17 23:00 - Procedures Procedures: Procedures INSERT INFUSION DEV IN R INT JUGULAR VEIN, PERC (02/25/16) RESPIRATORY VENTILATION, LESS THAN 24 CONSECUTIVE HOURS (02/25/16) ULTRASONOGRAPHY OF RIGHT JUGULAR VEINS, GUIDANCE (02/25/16)
[2017-10-10] MEDS: SODIUM CHLORIDE FLUSH 0.9% 10 ML SYRINGE IVP PRN (21:20)
[2017-10-11 05:35] LABS: HGB - HEMOGLOBIN 13.4 g/dL (14.0-18.0); MEAN CORPUSCULAR HEMOGLOBIN 28.1 pg (27.0-31.0); MEAN CORPUSCULAR HGB CONC 32.4 g/dL (32.0-36.0); MEAN CORPUSCULAR VOLUME 86.6 fL (80.0-94.0); MEAN PLATELET VOLUME 7.5 fL (7.4-11.4); RED BLOOD COUNT 4.78 10^6/uL (4.70-6.10); RED CELL DISTRIBUTION WIDTH 15.5 % (12.0-15.0); WHITE BLOOD COUNT 10.5 x10^3/uL (4.8-10.8)
[2017-10-11 05:39] LABS: CALCIUM 8.5 mg/dL (8.5-10.3); CREATININE 0.4 mg/dL (0.6-1.2)
[2017-10-11] MEDS: SODIUM CHLORIDE FLUSH 0.9% 10 ML SYRINGE IVP SCH ×3 (06:45→21:54)
[2017-10-11] MEDS: PIPERACILLIN/TAZOBACTAM 3.375 GM in SODIUM CHLORIDE 0.9% MINIBAG 100 ML IV SCH ×3 (06:45→21:55)
[2017-10-11] MEDS: methylPREDNISolone SUCCINATE 40 MG/ML VIAL IVP SCH ×3 (06:45→21:54)
[2017-10-11] MEDS: PANTOPRAZOLE 40 MG TABLET PO SCH (06:45)
[2017-10-11] MEDS: IPRATROPIUM/ALBUTEROL 3 ML NEB INH SCH ×4 (06:58→19:20)
[2017-10-11] MEDS: BUDESONIDE 0.5 MG/2 ML NEB INH SCH ×2 (06:58→19:20)
[2017-10-11] MEDS: FUROSEMIDE 20 MG TABLET PO SCH (08:40)
[2017-10-11] MEDS: METOPROLOL TARTRATE 25 MG TABLET PO SCH ×2 (08:40→22:03)
[2017-10-11] MEDS: CALCIUM CARBONATE CHEW 500 MG TABLET PO SCH ×2 (08:40→21:54)
[2017-10-11] MEDS: hydroCHLOROthiazide 25 MG TABLET PO SCH (08:40)
[2017-10-11] MEDS ORDERED: SODIUM CHLORIDE FLUSH 0.9% 10 ML SYRINGE ONE (08:41)
[2017-10-11] MEDS: LISINOPRIL 20 MG TABLET PO SCH (08:42)
[2017-10-11] MEDS: amLODIPine 5 MG TABLET PO SCH (08:42)
[2017-10-11] MEDS: ASPIRIN 325 MG TABLET PO SCH (08:42)
[2017-10-11] MEDS: HEPARIN 5,000 UNIT/ML VIAL SUBQ SCH ×2 (08:43→21:56)
--- NOTE | 2017-10-11 12:02 | PROVIDER PROGRESS NOTE ---
Subjective - Prog Note Date Prog Note Date: 10/11/17 Prog Note Time: 12:00 - Subjective Pt reports feeling: No change (The patient says he feels well. He has been eating without any difficulty and moving his bowels. He denies any new shortness of breath, pain or any other new problems.) Current Medications - Current Medications Current Medications: Acetaminophen, albuterol, ipratropium, amlodipine, aspirin, budesonide, calcium carbonate, furosemide,Heparin, hydrochlorothiazide, lisinopril, methylprednisolone, metoprolol, morphine, ondansetron, pantoprazole, Zosyn, polyethylene glycol, sodium chloride Objective - Vital Signs/Intake & Output Reviewed Vital Signs: Yes Vital Signs: Vital Signs x48h Temp Pulse Pulse Pulse Resp BP BP 10/11/17 11:36 64 14 10/11/17 08:40 132/70 H 10/11/17 08:38 65 10/11/17 07:32 36.3 C L 56 L 16 132/70 H 10/11/17 07:00 64 14 Pulse Ox 10/11/17 11:36 10/11/17 08:40 10/11/17 08:38 95 10/11/17 07:32 95 10/11/17 07:00 Intake & Output: Intake & Output 10/08/17 10/09/17 10/10/17 10/11/17 23:59 23:59 23:59 23:59 Intake Total 809 335 1508 320 Output Total 1740 1800 2450 800 Balance -980 -890 -1185 -480 - Objective General Appearance: positive: No acute distress, Alert Eyes Bilateral: positive: Normal inspection, PERRL, EOMI, No lid inflammation, Conjunctivae nml, No scleral icterus ENT: positive: ENT inspection nml, Pharynx nml, No signs of dehydration Neck: positive: Nml inspection, Thyroid nml, No JVD, Trachea midline. negative : Thyromegaly Respiratory: positive: Chest non-tender, No respiratory distress, Breath sounds nml. negative: Wheezes, Rales, Rhonchi Cardiovascular: positive: Regular rate & rhythm, No murmur, No gallop Abdomen: positive: Non-tender, No organomegaly, Nml bowel sounds, No distention. negative: Guarding, Rebound Back: positive: Nml inspection. negative: CVA tenderness (R), CVA tenderness (L ) Skin: positive: Color nml, No rash, Warm, Dry. negative: Cyanosis Extremities: positive: Non-tender, Full ROM, Nml appearance Neurologic/Psychiatric: positive: Oriented x3, CN's nml (2-12), Motor nml, Sensation nml, Mood/affect nml - Lab Results Fish Bones: 10/11/17 05:00 10/11/17 05:00 Other Labs: Lab Results x24hrs 10/11/17 10/11/17 10/11/17 Range/Units 05:00 05:00 05:00 WBC 10.5 (4.8-10.8) x10^3/uL RBC 4.78 (4.70-6.10) 10^6/uL Hgb 13.4 L (14.0-18.0) g/dL Hct 41.4 L (42.0-52.0) % MCV 86.6 (80.0-94.0) fL MCH 28.1 (27.0-31.0) pg MCHC 32.4 (32.0-36.0) g/dL RDW 15.5 H (12.0-15.0) % Plt Count 160 (130-450) 10^3/uL MPV 7.5 (7.4-11.4) fL Sodium 136 (135-145) mmol/L Potassium 4.1 (3.5-5.0) mmol/L Chloride 94 L (101-111) mmol/L Carbon Dioxide 33 H (21-32) mmol/L Anion Gap 9.0 (6-13) BUN 33 H (6-20) mg/dL Creatinine 0.4 L (0.6-1.2) mg/dL Estimated GFR (MDRD) 217 (>89) Glucose 134 H (70-100) mg/dL Calcium 8.5 (8.5-10.3) mg/dL B-Natriuretic Peptide 174 H (5-100) pg/mL Assessment/Plan - Problem List (1) Severe chronic obstructive pulmonary disease Impression: The patient is back to his baseline if not better. He is using less supplemental oxygen than he typically uses at home. We are waiting for placement at this time. (2) Congestive heart failure Impression: Well-controlled, BNP is down markedly from over 1100 on admission to 170 today. Qualifiers: Congestive heart failure type: unspecified Congestive heart failure chronicity: acute on chronic Qualified Code(s): I50.9 - Heart failure, unspecified (3) History of coronary artery disease Impression: Serial troponins were negative, no EKG changes were seen on exam. There have not been any complaints of shortness of breath or chest pain. We will continue to monitor the patient closely. (4) Dyslipidemia Impression: Continue Lipitor. (5) Hypertension Impression: Fairly well-managed at this time. The patient has had multiple medications added to his regimen to this point. Qualifiers: Hypertension type: essential hypertension Qualified Code(s): I10 - Essential (primary) hypertension
[2017-10-11] MEDS: POLYETHYLENE GLYCOL 3350 17 GM PACKET PO SCH (14:21)
[2017-10-12] MEDS: ALBUTEROL NEB 2.5 MG/3 ML INH PRN (03:36)
[2017-10-12] MEDS: methylPREDNISolone SUCCINATE 40 MG/ML VIAL IVP SCH ×3 (06:32→21:04)
[2017-10-12] MEDS: PIPERACILLIN/TAZOBACTAM 3.375 GM in SODIUM CHLORIDE 0.9% MINIBAG 100 ML IV SCH ×3 (06:32→21:05)
[2017-10-12] MEDS: PANTOPRAZOLE 40 MG TABLET PO SCH (06:32)
[2017-10-12] MEDS: SODIUM CHLORIDE FLUSH 0.9% 10 ML SYRINGE IVP SCH ×3 (06:32→21:04)
[2017-10-12] MEDS: BUDESONIDE 0.5 MG/2 ML NEB INH SCH ×2 (07:31→19:29)
[2017-10-12] MEDS: IPRATROPIUM/ALBUTEROL 3 ML NEB INH SCH ×4 (07:31→19:29)
[2017-10-12] MEDS: CALCIUM CARBONATE CHEW 500 MG TABLET PO SCH ×2 (09:13→21:05)
[2017-10-12] MEDS: METOPROLOL TARTRATE 25 MG TABLET PO SCH ×2 (09:14→21:05)
[2017-10-12] MEDS: FUROSEMIDE 20 MG TABLET PO SCH (09:15)
[2017-10-12] MEDS: ASPIRIN 325 MG TABLET PO SCH (09:15)
[2017-10-12] MEDS: LISINOPRIL 20 MG TABLET PO SCH (09:15)
[2017-10-12] MEDS: hydroCHLOROthiazide 25 MG TABLET PO SCH (09:15)
[2017-10-12] MEDS: amLODIPine 5 MG TABLET PO SCH (09:15)
[2017-10-12] MEDS: POLYETHYLENE GLYCOL 3350 17 GM PACKET PO SCH (09:17)
[2017-10-12] MEDS: HEPARIN 5,000 UNIT/ML VIAL SUBQ SCH ×2 (09:17→21:08)
--- NOTE | 2017-10-12 14:25 | PROVIDER PROGRESS NOTE ---
Subjective - Prog Note Date Prog Note Date: 10/12/17 Prog Note Time: 13:30 - Subjective Pt reports feeling: No change (Mr. Franz feels well today. He denies any pain or shortness of breath. He is eating and moving his bowels without any difficulty. He denies any fevers or chills.) Current Medications - Current Medications Current Medications: Acetaminophen, albuterol, ipratropium, amlodipine, aspirin, budesonide, calcium carbonate, furosemide,Heparin, hydrochlorothiazide, lisinopril, methylprednisolone, metoprolol, morphine, ondansetron, pantoprazole, Zosyn, polyethylene glycol, sodium chloride Objective - Vital Signs/Intake & Output Reviewed Vital Signs: Yes Vital Signs: Vital Signs x48h Temp Pulse Pulse Resp BP BP Pulse Ox 10/12/17 11:09 64 16 10/12/17 09:14 151/67 H 10/12/17 07:57 36.4 C L 59 L 18 151/67 H 95 10/12/17 07:48 68 16 Intake & Output: Intake & Output 10/09/17 10/10/17 10/11/17 10/12/17 23:59 23:59 23:59 23:59 Intake Total 910 1265 1230 670 Output Total 1800 2450 2625 1175 Balance -890 -1185 -1395 -505 - Objective General Appearance: positive: No acute distress, Alert Eyes Bilateral: positive: Normal inspection, PERRL, EOMI, No lid inflammation, Conjunctivae nml, No scleral icterus ENT: positive: ENT inspection nml, Pharynx nml, No signs of dehydration Neck: positive: Nml inspection, Thyroid nml, No JVD, Trachea midline. negative : Thyromegaly Respiratory: positive: Chest non-tender, No respiratory distress, Breath sounds nml. negative: Wheezes, Rales, Rhonchi Cardiovascular: positive: Regular rate & rhythm, No murmur, No gallop Abdomen: positive: Non-tender, No organomegaly, Nml bowel sounds, No distention. negative: Guarding, Rebound Back: positive: Nml inspection. negative: CVA tenderness (R), CVA tenderness (L ) Skin: positive: Color nml, No rash, Warm, Dry, Cyanosis Extremities: positive: Non-tender, Full ROM, Nml appearance Neurologic/Psychiatric: positive: Oriented x3, CN's nml (2-12), Motor nml, Sensation nml, Mood/affect nml - Lab Results Fish Bones: 10/11/17 05:00 10/11/17 05:00 Assessment/Plan - Problem List (1) Severe chronic obstructive pulmonary disease Impression: The patient's acute exacerbation is resolved. He currently is using oxygen at 2 -1/2 L/min which is the same amount he uses at home. (2) Congestive heart failure Impression: The patient had an acute exacerbation of CHF on admission but this is now resolved. BNP yesterday was 170. Qualifiers: Congestive heart failure type: unspecified Congestive heart failure chronicity: acute on chronic Qualified Code(s): I50.9 - Heart failure, unspecified (3) History of coronary artery disease Impression: There have not been any ischemic changes seen on the patient's EKG nor did the patient have any labs which suggested any kind of cardiac damage. Serial troponins were negative 3. Patient has not been complaining of shortness of breath or chest pain. (4) Dyslipidemia Impression: Stable. Continue Lipitor. (5) Hypertension Impression: The patient is currently taking amlodipine, Lasix, hydrochlorothiazide, lisinopril, and metoprolol. Blood pressure is somewhat labile. I will increase the lisinopril to 40 mg from 20 mg. Qualifiers: Hypertension type: essential hypertension Qualified Code(s): I10 - Essential (primary) hypertension
[2017-10-13] MEDS: ALBUTEROL NEB 2.5 MG/3 ML INH PRN (02:19)
[2017-10-13] MEDS: methylPREDNISolone SUCCINATE 40 MG/ML VIAL IVP SCH ×2 (05:51→12:23)
[2017-10-13] MEDS: PIPERACILLIN/TAZOBACTAM 3.375 GM in SODIUM CHLORIDE 0.9% MINIBAG 100 ML IV SCH ×2 (05:51→12:23)
[2017-10-13] MEDS: SODIUM CHLORIDE FLUSH 0.9% 10 ML SYRINGE IVP SCH ×3 (05:51→21:34)
[2017-10-13] MEDS: SODIUM CHLORIDE FLUSH 0.9% 10 ML SYRINGE IVP PRN ×2 (06:00→06:34)
[2017-10-13] MEDS: PANTOPRAZOLE 40 MG TABLET PO SCH (06:00)
--- NOTE | 2017-10-13 07:46 | Discharge Plan ---
"Discharge Plan for SNF / [facility] - DC Plan and Transition Orders Disposition: 03 SNF DC/Xfer Condition: Stable SNF Transition Orders: Admit to: [facility] under the care of Dr Henderson Discharge Diagnosis: Acute exacerbation of COPD Medicare Certification: I certify that Post Hospital shelter care is medically necessary on a continuing basis for any of the conditions for which she/he is receiving care during hospitalization. Notify PCP of admission and forward orders to primary provider for signature. Weight on admission and weekly. Call PCP immediately if weight increases by 10 pounds or if patient develops dyspnea, chest pain/tightness or edema. House Bowel Program: yes If no BM after 2 days, nurse may give M.O.M. 30ml PO PRN and /or ducolax Supp 1 MO and /or YVONNE 250mg P.O., and/or senna 1-2 tabs PO. On day 3 nurse may give repeat above order until residents constipation is resolved. Immunizations: Annual Influenza Vaccine: yes. (between Apr 18 and November 15.) Unless allergy or already given Two-Step PPD: yes per [facility] [id number] or appropriate documentation of approved exceptions Oxygen Orders: 2.5L/m via [place] Medications: PLEASE REFER TO THE DISCHARGE MEDICATION LIST. Allergies and Adverse Reactions: Allergies Allergy/AdvReac Type Severity Reaction Status Date / Time No Known Drug Allergies Allergy Verified 09/29/17 20:31 - Medications New Prescriptions: amLODIPine [Norvasc] 5 mg PO DAILY #15 tablet Budesonide [Pulmicort] 0.5 mg INH RTBID #1 neb hydroCHLOROthiazide [Hydrodiuril] 25 mg PO DAILY #15 tablet Metoprolol Tartrate [Lopressor] 50 mg PO BID #30 tablet - Diet Type: Geriatric Texture: Regular Liquids: Thin May have monthly special meal: Yes - Therapies | Activity Therapy: Evaluation | Treat if indicated: PT, OT Rehabilitation Potential: Maximize functional status Activity: Activity as Tolerated Weight Bearing: Full Weight"
--- NOTE | 2017-10-13 08:24 | DISCHARGE SUMMARY ---
Discharge Summary Admit Date: 09/29/17 Discharge Date: 10/13/17 Discharging Provider: Chey Silva DO Primary Care Provider: Dr Henderson Code Status: Do Not Attempt Resuscitation Condition at Discharge: Stable Discharge Disposition: SNF DC/Xfer Discharge Facility Name: [facility] - DIAGNOSES Admission Diagnoses: 1. Respiratory failure 2. Pneumonia 3. Acute exacerbation of CHF 4. Acute exacerbation of COPD 5. Cachexia Discharge Diagnoses with Status of Each Condition: 1. Acute exacerbation of COPD- resolved. The patient is resting easily on 2.5L /m supplemental oxygen, the same dose as at home. 2. Congestive heart failure- Acute exacerbation resolved, BNP has come down from 1171 to 170 2 days ago. 3. History of coronary artery disease -There have not been any ischemic changes seen on the patient's EKG nor did the patient have any labs which suggested any kind of cardiac damage. Serial troponins were negative 3. Patient has not been complaining of shortness of breath or chest pain. 4. Dyslipidemia - Stable. Continue Lipitor. 5. Hypertension - The patient is currently taking amlodipine, Lasix, hydrochlorothiazide, lisinopril, and metoprolol. Blood pressure is somewhat labile. - HPI History of Present Illness: From Dr. Chawla's H&P: The patient is a 62-year-old chronically ill white male with end-stage COPD on 2 -1/2-3 L home oxygen. The patient reported developing shortness of breath and cough about 2 weeks prior to admission, and felt ill in general. Patient has been losing weight but could not quantify how much and he was found to have an elevated BNP by his primary care provider, Deisy Javed. She decided to send him to the emergency department where he was found to be in respiratory failure and placed on BiPAP. His oxygen saturation on admission was 60% and was placed on 30% FiO2 with good tidal volumes. The chest x-ray showed diffuse complex infiltrates described as severe emphysema, which was worse than previous study in February 2016. Patient also had right mid and lower lung focal opacities concerning for pneumonia superimposed on emphysema. Troponin was negative and BNP was over 1100. - HOSPITAL COURSE Hospital Course: The patient was admitted to the hospital and treated with diuretics and iv antibiotics. He responded well to antibiotics and his pneumonia cleared fairly quickly. He was placed on long acting steroids and bronchodilators and his need for supplemental oxygen decreased down to his baseline within 4 or 5 days. Because of his new need for assistance with his ADLs, he decided to relocate near family in the [place] part of [facility], and arrangements were made for his transfer. - ALLERGIES Allergies/Adverse Reactions: Allergies Allergy/AdvReac Type Severity Reaction Status Date / Time No Known Drug Allergies Allergy Verified 09/29/17 20:31 - MEDICATIONS Home Medications: Ambulatory Orders Medication Instructions Recorded Confirmed Albuterol Sulfate [Proair Hfa 2 puffs INH Q4H PRN 06/09/14 09/30/17 Inhaler] Atorvastatin [Lipitor] 40 mg PO QPM 04/21/17 09/30/17 Ipratropium/Albuterol [Duoneb] 3 ml INH Q6H #30 neb 04/21/17 09/30/17 Aspirin [Aspirin EC] 325 mg PO DAILY 09/30/17 09/30/17 Beclomethasone 80 Mcg [Qvar 80] 1 puffs INH BID 09/30/17 09/30/17 Doxycycline Hyclate 100 mg PO [id number] 09/30/17 09/30/17 Lisinopril 40 mg PO QPM 09/30/17 09/30/17 Metoprolol Succinate 100 mg PO DAILY 09/30/17 09/30/17 Nitroglycerin [Nitrostat] 0.4 mg SL Q5MIN PRN 09/30/17 09/30/17 Albuterol 2.5 mg INH RTQ4H PRN [facility] 10/13/17 Aspirin [Valeriy] 325 mg PO DAILY tablet 10/13/17 Budesonide [Pulmicort] 0.5 mg INH RTBID #1 neb 10/13/17 Calcium Carbonate [Tums (Calcium 500 mg PO BID tablet 10/13/17 Carbonate 500mg)] Ipratropium/Albuterol [Duoneb] 3 ml INH RTQID neb 10/13/17 Metoprolol Tartrate [Lopressor] 50 mg PO BID #30 tablet 10/13/17 Polyethylene Glycol 3350 [Miralax] 17 gm PO DAILY packet 10/13/17 amLODIPine [Norvasc] 5 mg PO DAILY #15 tablet 10/13/17 hydroCHLOROthiazide [Hydrodiuril] 25 mg PO DAILY #15 tablet 10/13/17 - PHYSICAL EXAM AT DISCHARGE General Appearance: positive: No acute distress, Alert, Mild distress, Other ( cachectic, bitemporal wasting noted) Eyes Bilateral: positive: Normal inspection, PERRL, EOMI, No lid inflammation, Conjunctivae nml, No scleral icterus ENT: positive: ENT inspection nml, Pharynx nml, No signs of dehydration Neck: positive: Nml inspection, Thyroid nml, No JVD, Trachea midline. negative : Thyromegaly Respiratory: positive: Chest non-tender, No respiratory distress, Breath sounds nml. negative: Wheezes, Rales, Rhonchi Cardiovascular: positive: Regular rate & rhythm, No murmur, No gallop Peripheral Pulses: positive: 1+ Abdomen: positive: Non-tender, No organomegaly, Nml bowel sounds, No distention. negative: Guarding, Rebound Back: positive: Nml inspection. negative: CVA tenderness (R), CVA tenderness (L ) Skin: positive: Color nml, No rash, Warm, Dry. negative: Cyanosis Extremities: positive: Non-tender, Full ROM, Nml appearance, No pedal edema Neurologic/Psychiatric: positive: Oriented x3, CN's nml (2-12), Motor nml, Sensation nml, Mood/affect nml - LABS Result Diagrams: 10/11/17 05:00 10/11/17 05:00 - DIAGNOSTIC IMAGING Diagnostic Imaging Results: Final report reviewed Diagnostic Imaging Results Comments: CT ANGIOGRAM CHEST EXAM DATE: 09/29/2017 11:39 PM. CLINICAL HISTORY: Respiratory failure. COMPARISON: 02/25/2016. TECHNIQUE: Routine helical imaging was performed through the chest in the pulmonary arterial phase. IV Contrast: Nonionic. Reconstructions: Coronal 3-D MIP reconstructions.Sagittal and coronal. In accordance with CT protocol optimization, one or more of the following dose reduction techniques were utilized for this exam: automated exposure control, adjustment of mA and/or KV based on patient size, or use of iterative reconstructive technique. FINDINGS: Pulmonary Arteries: Diagnostic quality: Adequate through the segmental arteries. No evidence for acute or chronic pulmonary emboli. Right ventricle appears mildly dilated compared with the left ventricle. Mild bowing of the interventricular septum toward the left. Dilated central pulmonary arteries. Lungs/Pleura: Advanced emphysema. Motion artifact. Possible interstitial infiltrate or edema. Scattered bilateral areas of ill-defined nodularity. Small pleural effusions. No pneumothorax. Mediastinum: Heart size is normal. Coronary artery calcifications. Normal-sized mediastinal lymph nodes. Thoracic Aorta: Moderate to severe atherosclerosis. No aortic aneurysm or dissection. Upper Abdomen: Small stones in the gallbladder. No cholecystitis identified. Other: Right carotid artery stent. IMPRESSION: 1. No pulmonary emboli seen. 2. Advanced emphysema with prominent central pulmonary arteries suggesting pulmonary arterial hypertension. There may be mild right heart strain. 3. Coronary artery calcifications. 4. Possible interstitial infiltrate or edema. Scattered ill-defined areas of slight nodularity seen bilaterally, possibly inflammatory or fibrotic. Malignancy difficult to exclude. Recommend 6 month follow-up CT. 5. Small pleural effusions. 6. Small stones in the gallbladder. No cholecystitis identified. EXAM: CHEST RADIOGRAPHY EXAM DATE: 09/29/2017 08:30 PM. CLINICAL HISTORY: Hypoxia. Patchy infiltrates. COMPARISON: Chest 09/29/2017 and 02/25/2016. TECHNIQUE: 1 view. FINDINGS: Lungs/Pleura: Severe emphysema and scarring, worse compared to 02/25/2016. Right mid and lower lung focal opacities are concerning for pneumonia superimposed on severe emphysema, appear slightly increased compared to prior. Multiple nodular opacities in the right upper lobe have increased, could be areas of pneumonia or aspiration. Follow-up of these findings are recommended to ensure resolution. A follow-up chest CT could be obtained to exclude malignancy. No pleural effusion or pneumothorax. Hyperexpanded lungs. Mediastinum: Enlarged pulmonary arteries is seen with pulmonary arterial hypertension. The heart is not enlarged. IMPRESSION: Severe emphysema and scarring, worse compared to 02/25/2016. Right mid and lower lung focal opacities are concerning for pneumonia superimposed on severe emphysema, appear slightly increased compared to prior. Multiple nodular opacities in the right upper lobe have increased, could be areas of pneumonia or aspiration. Follow-up of these findings are recommended to ensure resolution. A follow-up chest CT could be obtained to exclude malignancy. No pleural effusion or pneumothorax. Hyperexpanded lungs. - FOLLOW UP Follow Up: Repeat the CAT scan of the chest in 6 months. - TIME SPENT Time Spent in Discharge (Minutes): 45
[2017-10-13] MEDS: ASPIRIN 325 MG TABLET PO SCH (08:50)
[2017-10-13] MEDS: LISINOPRIL 20 MG TABLET PO SCH (08:50)
[2017-10-13] MEDS: amLODIPine 5 MG TABLET PO SCH (08:50)
[2017-10-13] MEDS: CALCIUM CARBONATE CHEW 500 MG TABLET PO SCH ×2 (08:51→21:33)
[2017-10-13] MEDS: HEPARIN 5,000 UNIT/ML VIAL SUBQ SCH ×2 (08:51→21:34)
[2017-10-13] MEDS: METOPROLOL TARTRATE 25 MG TABLET PO SCH ×2 (08:51→21:33)
[2017-10-13] MEDS: BUDESONIDE 0.5 MG/2 ML NEB INH SCH ×2 (09:00→20:38)
[2017-10-13] MEDS: IPRATROPIUM/ALBUTEROL 3 ML NEB INH SCH ×4 (09:00→20:38)
[2017-10-13] MEDS: POLYETHYLENE GLYCOL 3350 17 GM PACKET PO SCH (09:29)
[2017-10-13] MEDS: FUROSEMIDE 20 MG TABLET PO SCH (09:29)
[2017-10-13] MEDS: hydroCHLOROthiazide 25 MG TABLET PO SCH (09:29)
[2017-10-13] MEDS: methylPREDNISolone 4 MG TABLET PO SCH (21:33)
[2017-10-14] MEDS: PANTOPRAZOLE 40 MG TABLET PO SCH (06:26)
[2017-10-14] MEDS: SODIUM CHLORIDE FLUSH 0.9% 10 ML SYRINGE IVP SCH ×4 (07:00→23:42)
[2017-10-14] MEDS: BUDESONIDE 0.5 MG/2 ML NEB INH SCH ×2 (08:45→23:35)
[2017-10-14] MEDS: IPRATROPIUM/ALBUTEROL 3 ML NEB INH SCH ×4 (08:45→23:34)
[2017-10-14] MEDS: amLODIPine 5 MG TABLET PO SCH (08:59)
[2017-10-14] MEDS: LISINOPRIL 20 MG TABLET PO SCH (08:59)
[2017-10-14] MEDS: METOPROLOL TARTRATE 25 MG TABLET PO SCH ×2 (08:59→20:25)
[2017-10-14] MEDS: CALCIUM CARBONATE CHEW 500 MG TABLET PO SCH ×2 (08:59→20:25)
[2017-10-14] MEDS: ASPIRIN 325 MG TABLET PO SCH (08:59)
[2017-10-14] MEDS: methylPREDNISolone 4 MG TABLET PO SCH ×2 (09:02→20:25)
[2017-10-14] MEDS: FUROSEMIDE 20 MG TABLET PO SCH (09:02)
[2017-10-14] MEDS: HEPARIN 5,000 UNIT/ML VIAL SUBQ SCH ×2 (09:02→20:26)
[2017-10-14] MEDS: hydroCHLOROthiazide 25 MG TABLET PO SCH (09:02)
--- NOTE | 2017-10-14 16:10 | PROVIDER PROGRESS NOTE ---
Assessment/Plan - Problem List (1) COPD exacerbation Assessment/Plan: Stable on present management Awaiting placement, which TAMARA is working on. (2) History of coronary artery disease Assessment/Plan: Stable (3) Hypertension Qualifiers: Hypertension type: essential hypertension Qualified Code(s): I10 - Essential (primary) hypertension Assessment/Plan: Stable - Current Meds Current Meds: Current Medications Generic Name Dose Route Start Last Admin Trade Name Freq PRN Reason Stop Dose Admin Acetaminophen 500 mg 10/08/17 13:54 10/08/17 14:05 Tylenol PO 500 mg Q4HR PRN Administration Pain or Fever > 38C (100.4F) Albuterol 2.5 mg 09/30/17 12:03 10/13/17 02:19 INH 2.5 mg RTQ4H PRN Administration Wheezing Albuterol/Ipratropium 3 ml 09/30/17 13:00 10/14/17 13:45 Duoneb INH 3 ml RTQID GABE Administration Amlodipine Besylate 5 mg 10/07/17 11:00 10/14/17 08:59 Norvasc PO 5 mg DAILY GABE Administration Aspirin 325 mg 09/29/17 09:00 10/14/17 08:59 Valeriy PO 325 mg DAILY GABE Administration Budesonide 0.5 mg 09/30/17 07:00 10/14/17 08:45 Pulmicort INH 0.5 mg RTBID GABE Administration Calcium Carbonate/Glycine 500 mg 10/01/17 04:00 10/14/17 08:59 Tums PO 500 mg BID GABE Administration Furosemide 20 mg 10/02/17 08:00 10/14/17 09:02 Lasix PO Not Given DAILY [facility] Heparin Sodium (Porcine) 5,000 unit 09/30/17 09:00 10/14/17 09:02 SUBQ 5,000 unit BID GABE Administration Hydrochlorothiazide 25 mg 10/04/17 19:00 10/14/17 09:02 Hydrodiuril PO Not Given DAILY GABE Lisinopril 40 mg 10/12/17 14:30 10/14/17 08:59 Zestril PO 40 mg DAILY GABE Administration Methylprednisolone 4 mg 10/13/17 21:00 10/14/17 09:02 Medrol PO 4 mg BID GABE Administration Metoprolol Tartrate 50 mg 10/07/17 21:00 10/14/17 08:59 Lopressor PO 50 mg BID GABE Administration Morphine Sulfate 10 mg 09/30/17 20:24 10/01/17 08:20 Roxanol PO 10 mg Q2HR PRN Administration Dyspnea Pantoprazole Sodium 40 mg 09/30/17 07:00 10/14/17 06:26 Protonix PO 40 mg QDAC GABE Administration Sodium Chloride 10 ml 09/29/17 22:12 10/13/17 06:34 Normal Saline Flush 0.9% IVP 10 ml PRN PRN Administration NEEDED PER PROVIDER ORDERS Sodium Chloride 10 ml 09/30/17 06:00 10/14/17 15:43 Normal Saline Flush 0.9% IVP Not Given Q8HR GABE Sodium Chloride 2 sprays 10/05/17 11:38 10/05/17 21:22 [place] NARCISA 2 spr Q4HR PRN Administration Nasal Congestion - Lab Result Fish Bone Diagrams: 10/11/17 05:00 10/11/17 05:00 Subjective - Subjective Patient Reports: No Complaints Objective Vital Signs: Vital Signs - 24 hr 10/13/17 10/13/17 10/13/17 16:28 20:40 21:33 Temperature 36.4 C L Heart Rate 62 Heart Rate [ 67 Apical] Heart Rate [ Brachial] Respiratory 16 14 Rate Blood Pressure 124/68 Blood Pressure 125/63 [Right Brachial artery] O2 Saturation 92 10/13/17 10/14/17 10/14/17 23:40 08:45 08:52 Temperature 36.7 C 36.4 C L Heart Rate 70 Heart Rate [ 63 Apical] Heart Rate [ 69 Brachial] Respiratory 16 14 18 Rate Blood Pressure Blood Pressure 131/71 H 111/62 [Right Brachial artery] O2 Saturation 94 94 10/14/17 10/14/17 13:45 15:22 Temperature Heart Rate 60 Heart Rate [ Apical] Heart Rate [ 64 Brachial] Respiratory 16 16 Rate Blood Pressure Blood Pressure 121/65 [Right Brachial artery] O2 Saturation 94 Oxygen O2 Source Oxymask I&O (Last 24 Hrs): Intake and Output Totals x24h 10/12/17 10/13/17 10/14/17 23:59 23:59 23:59 Intake Total 1220 1090 590 Output Total 2300 6675 900 [facility] -[phone] -310 HEENT: Mucous membr. moist/pink Respiratory: No respiratory distress - Results Results: Laboratory Results WBC 10.5 x10^3/uL (4.8-10.8) 10/11/17 05:00 RBC 4.78 10^6/uL (4.70-6.10) 10/11/17 05:00 Hgb 13.4 g/dL (14.0-18.0) L 10/11/17 05:00 Hct 41.4 % (42.0-52.0) L 10/11/17 05:00 MCV 86.6 fL (80.0-94.0) 10/11/17 05:00 MCH 28.1 pg (27.0-31.0) 10/11/17 05:00 MCHC 32.4 g/dL (32.0-36.0) 10/11/17 05:00 RDW 15.5 % (12.0-15.0) H 10/11/17 05:00 Plt Count 160 10^3/uL (130-450) 10/11/17 05:00 MPV 7.5 fL (7.4-11.4) 10/11/17 05:00 Neut # Not Reportable 09/29/17 20:05 Lymph # Not Reportable 09/29/17 20:05 [place] # Not Reportable 09/29/17 20:05 Eos # Not Reportable 09/29/17 20:05 Baso # Not Reportable 09/29/17 20:05 Absolute Nucleated RBC Not Reportable 09/29/17 20:05 Total Counted 100 09/29/17 20:05 Band Neuts % (Manual) 4 % (0-10) 09/29/17 20:05 Reactive Lymphs % (Man) 4 % 09/29/17 20:05 Abnorm Lymph % (Manual) 0 % 09/29/17 20:05 Nucleated RBC % Not Reportable 09/29/17 20:05 Neutrophils # (Manual) 6.7 10^3/uL (1.5-6.6) H 09/29/17 20:05 Lymphocytes # (Manual) 1.5 10^3/uL (1.5-3.5) 09/29/17 20:05 Monocytes # (Manual) 0.3 10^3/uL (0.0-1.0) 09/29/17 20:05 Eosinophils # (Manual) 0.0 10^3/uL (0-0.7) 09/29/17 20:05 Basophils # (Manual) 0.0 10^3/uL (0-0.1) 09/29/17 20:05 Differential Comment MANUAL DIFFERENTIAL 09/29/17 20:05 Platelet Estimate NORMAL (130-450,000) (NORMAL) 09/29/17 20:05 Platelet Morphology NORMAL APPEARANCE (NORMAL) 09/29/17 20:05 RBC Morph Micro Appear NORMAL APPEARANCE (NORMAL) 09/29/17 20:05 Sodium 136 mmol/L (135-145) 10/11/17 05:00 Potassium 4.1 mmol/L (3.5-5.0) 10/11/17 05:00 Chloride 94 mmol/L (101-111) L 10/11/17 05:00 Carbon Dioxide 33 mmol/L (21-32) H 10/11/17 05:00 Anion Gap 9.0 (6-13) 10/11/17 05:00 BUN 33 mg/dL (6-20) H 10/11/17 05:00 Creatinine 0.4 mg/dL (0.6-1.2) L 10/11/17 05:00 Estimated GFR (MDRD) 217 (>89) 10/11/17 05:00 Glucose 134 mg/dL (70-100) H 10/11/17 05:00 Calcium 8.5 mg/dL (8.5-10.3) 10/11/17 05:00 Total Bilirubin 0.8 mg/dL (0.2-1.0) 09/29/17 20:05 AST 40 IU/L (10-42) 09/29/17 20:05 ALT 28 IU/L (10-60) 09/29/17 20:05 Alkaline Phosphatase 72 IU/L (42-121) 09/29/17 20:05 Troponin I < 0.04 ng/mL (<0.49) 09/30/17 06:10 B-Natriuretic Peptide 174 pg/mL (5-100) H 10/11/17 05:00 Total Protein 7.9 g/dL (6.7-8.2) 09/29/17 20:05 Albumin 4.0 g/dL (3.2-5.5) 09/29/17 20:05 Globulin 3.9 g/dL (2.1-4.2) 09/29/17 20:05 Albumin/Globulin Ratio 1.0 (1.0-2.2) 09/29/17 20:05 Lipase 30 U/L (22-51) 09/29/17 20:05 Urine Color YELLOW 09/29/17 23:00 Urine Clarity CLEAR (CLEAR) 09/29/17 23:00 Urine pH 5.5 PH (5.0-7.5) 09/29/17 23:00 Ur Specific [place] 1.010 (1.002-1.030) 09/29/17 23:00 Urine Protein NEGATIVE mg/dL (NEGATIVE) 09/29/17 23:00 Urine Glucose (UA) NEGATIVE mg/dL (NEGATIVE) 09/29/17 23:00 Urine Ketones NEGATIVE mg/dL (NEGATIVE) 09/29/17 23:00 Urine Occult Blood TRACE-LYSE (NEGATIVE) 09/29/17 23:00 Urine Nitrite NEGATIVE (NEGATIVE) 09/29/17 23:00 Urine Bilirubin NEGATIVE (NEGATIVE) 09/29/17 23:00 Urine Urobilinogen 0.2 (NORMAL) E.U./dL (NORMAL) 09/29/17 23:00 Ur Leukocyte Esterase NEGATIVE (NEGATIVE) 09/29/17 23:00 Urine RBC 6-10 /HPF (0-5) H 09/29/17 23:00 Urine WBC 0-3 /HPF (0-3) 09/29/17 23:00 Ur Squamous Epith Cells RARE Squamous (<= Few) 09/29/17 23:00 Urine Bacteria Rare /HPF (None Seen) 09/29/17 23:00 Urine Casts 6-10 Hyaline Casts /LPF 09/29/17 23:00 Urine Mucus Few Strands 09/29/17 23:00 Urine Culture Comments NOT INDICATED 09/29/17 23:00 Salicylates < 6.0 mg/dL 09/29/17 22:29 Urine Opiates Screen NEGATIVE (NEGATIVE) 09/29/17 23:00 Ur Oxycodone Screen NEGATIVE (NEGATIVE) 09/29/17 23:00 Urine Methadone Screen NEGATIVE (NEGATIVE) 09/29/17 23:00 Ur Propoxyphene Screen NEGATIVE (NEGATIVE) 09/29/17 23:00 Acetaminophen < 10 ug/mL (10-30) L 09/29/17 22:29 Ur Barbiturates Screen NEGATIVE (NEGATIVE) 09/29/17 23:00 Ur Tricyclics Screen NEGATIVE (NEGATIVE) 09/29/17 23:00 Ur Phencyclidine Scrn NEGATIVE (NEGATIVE) 09/29/17 23:00 Ur Amphetamine Screen NEGATIVE (NEGATIVE) 09/29/17 23:00 U Methamphetamines Scrn NEGATIVE (NEGATIVE) 09/29/17 23:00 U Benzodiazepines Scrn NEGATIVE (NEGATIVE) 09/29/17 23:00 Urine Cocaine Screen NEGATIVE (NEGATIVE) 09/29/17 23:00 U Cannabinoids Screen NEGATIVE (NEGATIVE) 09/29/17 23:00 - Procedures Procedures: Procedures INSERT INFUSION DEV IN R INT JUGULAR VEIN, PERC (02/25/16) RESPIRATORY VENTILATION, LESS THAN 24 CONSECUTIVE HOURS (02/25/16) ULTRASONOGRAPHY OF RIGHT JUGULAR VEINS, GUIDANCE (02/25/16)
[2017-10-14] MEDS: ACETAMINOPHEN 500 MG TABLET PO PRN (22:39)
[2017-10-15] MEDS: PANTOPRAZOLE 40 MG TABLET PO SCH (06:47)
[2017-10-15] MEDS: BUDESONIDE 0.5 MG/2 ML NEB INH SCH (07:40)
[2017-10-15] MEDS: IPRATROPIUM/ALBUTEROL 3 ML NEB INH SCH ×2 (07:40→11:46)
[2017-10-15] MEDS: hydroCHLOROthiazide 25 MG TABLET PO SCH (08:25)
[2017-10-15] MEDS: LISINOPRIL 20 MG TABLET PO SCH (08:26)
[2017-10-15] MEDS: METOPROLOL TARTRATE 25 MG TABLET PO SCH (08:26)
[2017-10-15] MEDS: FUROSEMIDE 20 MG TABLET PO SCH (08:26)
[2017-10-15] MEDS: amLODIPine 5 MG TABLET PO SCH (08:26)
[2017-10-15] MEDS: ASPIRIN 325 MG TABLET PO SCH (08:26)
[2017-10-15] MEDS: CALCIUM CARBONATE CHEW 500 MG TABLET PO SCH (08:27)
[2017-10-15] MEDS: methylPREDNISolone 4 MG TABLET PO SCH (08:29)
[2017-10-15] MEDS: HEPARIN 5,000 UNIT/ML VIAL SUBQ SCH (08:29)
[2017-10-15 08:33] VITALS: BP 123/73
[2017-10-15] MEDS: SODIUM CHLORIDE FLUSH 0.9% 10 ML SYRINGE IVP SCH (11:18)
== END 2017-10-15 12:37 | DRG 189 ==
LOC: ED 19:39 → ICU 22:12 → MS2 10-02 13:57
PROVIDERS: ADMIT Internal Medicine; ATTEND Hospitalist
DX: J96.20 Acute and chronic respiratory failure, unspecified whether with hypoxia or hypercapnia (principal); J18.9 Pneumonia, unspecified organism; R64 Cachexia; Z68.1 Body mass index [BMI] 19.9 or less, adult; J43.9 Emphysema, unspecified; I11.0 Hypertensive heart disease with heart failure; I50.9 Heart failure, unspecified; E78.5 Hyperlipidemia, unspecified; I25.10 Atherosclerotic heart disease of native coronary artery without angina pectoris; Z66 Do not resuscitate; Z99.81 Dependence on supplemental oxygen; I25.2 Old myocardial infarction; Z79.82 Long term (current) use of aspirin; Z79.51 Long term (current) use of inhaled steroids; Z79.52 Long term (current) use of systemic steroids; Z79.899 Other long term (current) drug therapy; E04.1 Nontoxic single thyroid nodule; R91.8 Other nonspecific abnormal finding of lung field
CPT/HCPCS: 36415; 71045; 71046; 71275; 80048; 80050; 80053; 80306; 80307; 80320; 80329; 81001; 83690; 83880; 84132; 84439; 84484; 85025; 87086; 87150; 93005; 93306; 94640; 94660; 94761; 96365; 96375; 99285